=== PATIENT | male | born 1960 | race African-American/Black ===

== ENCOUNTER 2018-01-30 08:25 | Day surgery (SDC) | payer OTHER ==
[~2018-01-30] VITALS: Ht 195.6 cm; Wt 101.8 kg
--- NOTE | ~2018-01-30 | OP ---
PATIENT NAME: MARCOS BARRERA MEDICAL RECORD: [id number] :62 LOCATION:D.OPS ADMISSION DATE: SURGEON: NEIL PAUL MD DATE OF OPERATION: 01/30/2018 PREOPERATIVE DIAGNOSES: 1. Fecal occult blood positivity. 2. Anemia. POSTOPERATIVE DIAGNOSES: 1. Fecal occult blood positivity. 2. Anemia with no source for fecal occult blood positivity and anemia identified. 3. THE PATIENT HAS A PROSTATE NODULE. PROCEDURE: Total colonoscopy to cecum. SURGEON: Neil Paul MD FUEL CONVERSION TECHNICIAN: None. BLOOD LOSS: Zero. COMPLICATIONS: None. ENDOSCOPIC COURSE: The patient was conveyed to the endoscopy suite electively on 01/30/2018. It was necessary to have the anesthesia staff present during the procedure as the patient had a seizure during a prior upper endoscopy. IV sedation was induced by the anesthesia staff. The patient was placed in the Capps position. A digital examination was performed. This revealed a prostate nodule at the mid portion of the prostate gland. The endoscope was advanced through the anus and advanced easily to the cecum. The prep was adequate. I slowly withdrew the endoscope. I irrigated and aspirated extensively. A combination of normal imaging as well as narrow band imaging were utilized. I dragged the folds. The pullback was greater than 18-minute pullback. No bleeding source was identified. A retroflexed view was obtained in the rectum. I then unretroflexed the scope and removed it under direct vision. I have recommended the patient have an upper endoscopy if this has not already been done to search for a source for fecal occult blood positivity and anemia. TRANSINT:[id number] Voice Confirmation ID: [id number] DOCUMENT ID: [id number] NEIL PAUL MD at 1240 CC: [id number] DICTATION DATE: 01/30/18 1105 CORPORATE JOB TITLES: 01/30/18 1151 [facility] 01/30/18 [place] [id number] [place] [id number]
--- NOTE | ~2018-01-30 | HP ---
PATIENT: MARCOS BARRERA MEDICAL RECORD: [id number] ACCOUNT: [id number] LOCATION:[place] : 62 ADMISSION DATE: 01/30/18 HISTORY AND PHYSICAL EXAMINATION CHIEF COMPLAINT: Here for colonoscopy. The patient has fecal occult blood positivity as well as decreased H&H. I saw him out at the [facility]. Due to the fact that he is ASA IV it was felt that he would be best taken care of in the hospital. He states that he has had a seizure during an upper endoscopy in the past. The risks, possible complications, and alternatives to the procedure were explained to the patient. He elects to proceed. HOME MEDICATIONS: Please see the nursing list. ALLERGIES: No known drug allergies. SOCIAL HISTORY: Ex-smoker. PAST MEDICAL AND SURGICAL HISTORY: Angina. 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 Hypertension, seizures, insulin-dependent diabetes mellitus, chronic renal insufficiency, history of hepatitis C but he took the Harvoni regimen and states that he now tests negative, and gastroesophageal reflux. PHYSICAL EXAMINATION: GENERAL: The patient does not appear acutely ill. He does not appear chronically ill. VITAL SIGNS: Reviewed. EARS: External ears appear normal. EYES: Extraocular movements are intact. NECK: Trachea is midline. CHEST: No intercostal retractions. PULMONARY: Nonlabored, no stridor. ABDOMEN: Nontender. IMPRESSION: 1. Fecal occult blood positivity. 2. Anemia. PLAN: Colonoscopy. TRANSINT:[id number] Voice Confirmation ID: [id number] DOCUMENT ID: [id number] TERA PAUL MD at 1241 CC: [id number] DICTATION DATE: 01/30/18 1022 MASONRY CONTRACTOR ADMINISTRATOR: 01/30/18 1045 [facility] 01/30/18 [place] [id number]
[2018-01-30] MEDS ORDERED: LASIX40 MG PO (09:38)
[2018-01-30] MEDS ORDERED: HUMULIN N100 U/ML SC (09:39)
[2018-01-30] MEDS ORDERED: BAYER CHEWABLE81 MG PO (09:40)
[2018-01-30] MEDS ORDERED: HUMULIN R100 U/ML SC (09:40)
[2018-01-30] MEDS ORDERED: HYDRALAZINE HCL25 MG PO (09:41)
[2018-01-30] MEDS ORDERED: ISOSORBIDE DINI20 MG PO (09:42)
[2018-01-30] MEDS ORDERED: TOPROL XL25 MG PO (09:42)
[2018-01-30 09:52] VITALS: BP 156/104; Ht 195.6 cm; Wt 101.8 kg
== END 2018-01-30 12:30 | disposition home or self-care (01) ==
LOC: D.OPS 08:25
DX: R19.5 Other fecal abnormalities (principal); D64.9 Anemia, unspecified; N40.2 Nodular prostate without lower urinary tract symptoms; I20.9 Angina pectoris, unspecified; E11.22 Type 2 diabetes mellitus with diabetic chronic kidney disease; I12.9 Hypertensive chronic kidney disease with stage 1 through stage 4 chronic kidney disease, or unspecified chronic kidney disease; N18.9 Chronic kidney disease, unspecified; Z79.4 Long term (current) use of insulin; R56.9 Unspecified convulsions; Z86.19 Personal history of other infectious and parasitic diseases; K21.9 Gastro-esophageal reflux disease without esophagitis; Z87.891 Personal history of nicotine dependence; Z79.899 Other long term (current) drug therapy

== ENCOUNTER 2018-03-13 08:49 | Inpatient (IN) | payer MEDICAID ==
[~2018-03-13] VITALS: Ht 175.3 cm; Wt 105.2 kg
[2018-03-13] VITALS (27 sets, daily range): BP systolic 82–175; BP diastolic 52–107; BMI 35.5; BMI 33.7
--- NOTE | ~2018-03-13 | EC ---
PATIENT:MARCOS BARRERA DATE OF SERVICE: 03/13/18 SEX: M MEDICAL RECORD: [id number] DATE OF : 62 LOCATION:[facility] AGE OF PATIENT: 57 ADMISSION DATE: 03/13/18 REFERRING PHYSICIAN: INTERPRETING PHYSICIAN: GÓMEZ JUSTIN MD ECHOCARDIOGRAM REPORT ECHO CHARGES 4 ECHO COMPLETE Date: 03/14/18 CLINICAL DIAGNOSIS: S/P CODE/CHF ECHOCARDIOGRAPHIC MEASUREMENTS (adult normal given) AC root (d.<3.7cm) 3.6 cm LV Septum d (<1.2 cm> 1.4 cm Valve Excursion 2.0 cm LV Septum (systole) 1.9 cm Left Atria (s.<4.0cm> 3.9 cm LVPW d(<1.2cm) 1.3 cm RV (d.<2.3cm) 2.2 cm LVPW (sytole) 1.8 cm LV diastole(<5.6CM) 5.6 cm MV E-F(>70mm/sec) cm LV systole 3.5 cm LVOT Diameter 1.8 cm MV exc.(>10mm) cm Est.ejection fraction (50-75%) % DOPPLER: LVIT cm/sec A 55.0 cm/sec E 72.0 cm/sec LA cm/sec RVSP 23.0 mmHg LVOT 123 cm/sec AOP1/2T m/s Asc. Ao 147 cm/sec RVOT 76.0 cm/sec RA cm/sec PA 104 cm/sec AV Gradient Peak 8.7 mmHg AV Mean 3.9 mmHg AV Area 2.8 cm MV Gradient Peak 3.9 mmHg MV Mean 1.8 mmHg MV Area cm COMMENTS: Pricing Actuary: Griselda ALTAMIRANOOE Soap Tender: 1 Dr. Justin TAPE# PACS Pericardial Effusion N DATE OF SERVICE: 03/14/2018 FINDINGS: 1. Left ventricular chamber size is upper limits of normal. Left ventricular systolic function is mildly depressed. Overall ejection fraction 40%. There is mild global hypokinesis throughout all segments, but no discrete wall motion abnormalities are present. 2. Left atrium, right atrium, and right ventricle chamber size is within normal limits. 3. Valvular structures have normal structure and motion. ECHOCARDIOGRAM REPORT [id number] MARCOS BARRERA 4. Doppler interrogation reveals [id number] mitral regurgitation and mild tricuspid regurgitation. No other valvular insufficiency or stenosis. Pulmonary systolic pressure is normal, estimated at 23 mmHg. 5. No evidence of pericardial effusion or left ventricular thrombus. TRANSINT:[id number] Voice Confirmation ID: [id number] DOCUMENT ID: [id number] GÓMEZ JUSTIN MD at 0924 CC: [id number] DICTATION DATE: 03/14/18 1641 EXERCISE EQUIPMENT REPAIR TECHNICIAN: 03/14/18 1818 [facility] 03/14/18 [place] [id number] [place] [address]
--- NOTE | ~2018-03-13 | HP ---
PATIENT: MARCOS BARRERA MEDICAL RECORD: [id number] ACCOUNT: [id number] LOCATION:[facility] : 62 ADMISSION DATE: 03/13/18 PCP: No PCP HISTORY AND PHYSICAL EXAMINATION CHIEF COMPLAINT: Anemia. HISTORY: The patient has anemia. He has had a negative colonoscopy. He has had fecal occult blood positivity. He is here for an EGD. This is being done in the hospital because he has congestive heart failure and recently had a bout of congestive heart failure. SOCIAL HISTORY: Nonsmoker. MEDICINES AT THE SENIOR CARE: Include aspirin and Lasix. ALLERGIES: No known drug allergies. PAST MEDICAL AND SURGICAL HISTORY: Hypertension, congestive heart failure, heart rhythm problems, gastroesophageal reflux, insulin-dependent diabetes mellitus, and also venous stasis insufficiency of the lower extremities. REVIEW OF SYSTEMS: Baseline dyspnea. PHYSICAL EXAMINATION: GENERAL: The patient does not appear acutely ill. He does not appear chronically ill. VITAL SIGNS: Reviewed. EARS: External ears appear normal. EYES: Extraocular movements are intact. NECK: Trachea is midline. CHEST: No intercostal retractions. PULMONARY: Nonlabored. EXTREMITIES: Brawny edema of both lower extremities. IMPRESSION: Anemia with fecal occult blood positivity and a negative colonoscopy for bleeding. PLAN: EGD. TRANSINT:[id number] Voice Confirmation ID: [id number] DOCUMENT ID: [id number] TERA PAUL MD at 1017 CC: DIDIER OROZCO MD, GÓMEZ CESPEDES MD and [place] [id number] DICTATION DATE: 03/13/18 1347 DISHWASHER BUSSER: 03/13/18 1446 [facility] 03/14/18 [place] [id number] [place] [id number]
--- NOTE | ~2018-03-13 | CN ---
PATIENT NAME:MARCOS ROTHMAN MEDICAL RECORD: [id number] : 62 LOCATION:[facility]10 ADMIT DATE: 03/13/18 ACCOUNT: [id number] CONSULTING PHYSICIAN: GRISELDA FUNEZ MD REFERRING PHYSICIAN: TERA PAUL MD DATE OF CONSULTATION: 03/13/2018 CONSULT REQUESTING PHYSICIAN: Tera Paul MD. REASON FOR CONSULTATION: Vent management, status post cardiopulmonary arrest. HISTORY OF PRESENT ILLNESS: Mr. Rothman is a 57-year-old [place] He underwent EGD for possible GI bleed and Hemoccult-positive stool. During the procedure, the patient became bradycardic, hypoxic and unresponsive. The patient was coded, intubated and transferred to the ICU. Now, the history is taken mainly by reviewing the patient's chart and talking to the nursing staff as well as talking to Dr. Paul. The patient is unresponsive. ALLERGIES: There are no known drug allergy. PAST MEDICAL HISTORY: 1. Hypertension. 2. Congestive heart failure. 3. History of cardiac arrhythmia. 4. Gastroesophageal reflux disease. 5. Insulin-dependent diabetes mellitus. 6. Venous stasis of the lower extremity. ALLERGIES: No known drug allergies. MEDICATIONS: Guang Lian Shi Dai is reviewed. PERSONAL AND SOCIAL HISTORY: The detail is not obtainable. FAMILY HISTORY: Not obtainable. PHYSICAL EXAMINATION: GENERAL: Now, the patient is orally intubated. The patient is unresponsive. VITAL SIGNS: The blood pressure is 155/103, respirations are 12 on assist control mechanical ventilation, heart rate is 80 to 128, temperature is 97.5. Mechanical ventilation setting assist control rate of 12, tidal volume of 550, PEEP of 5. HEENT: Conjunctiva is pale. The pupil are unequal on both sides. The left is 4 mm in size and nonreactive to light. NECK: Supple. No JVD. CHEST: There are bilateral crackles. No wheezing. HEART: Rate and rhythm is regular. There is 2+ pedal edema. ABDOMEN: Soft, bowel sounds are muffled. RECTAL: Deferred. EXTREMITIES: No cyanosis or clubbing. There are 2+ pedal edema. CENTRAL NERVOUS SYSTEM: The patient has unequal pupil and unresponsive. LABORATORY DATA: CBC: WBC is 9.5, hemoglobin is 11.3, hematocrit 35.1, the platelet count 150. Chemistry: Sodium 139, potassium 3.2, chloride 105, bicarbonate is 26, BUN is 20, creatinine is 1.8, glucose 190, calcium 8.3. The CONSULT REPORT [id number] MARCOS ROTHMAN CK-MB is 3.8. The troponin is 0.239. The proBNP is 10,367. Albumin is 1.7. ABG: The pH is 7.11, pCO2 is 68.6, the pO2 is 78, bicarbonate is 21.8. IMPRESSION: 1. Acute respiratory failure. 2. Cardiopulmonary arrest. 3. Pulmonary edema. 4. Elevated cardiac enzyme, most likely secondary to myocardial infarction, possible post-resuscitation. 5. Congestive heart failure with chronic systolic dysfunction. 6. Anemia. 7. Gastrointestinal bleed. 8. Hypokalemia. RECOMMENDATIONS: 1. We will continue the mechanical ventilation assist control, adjust the setting. 2. Albuterol ipratropium nebulizer. 3. Continue dobutamine. 4. Propofol for sedation. 5. Gastrointestinal bleed prevention on Protonix IV. 6. DVT prophylaxis. 7. Cardiology has been consulted. 8. Follow up labs and chest radiograph. Discussed in length with respiratory RN and respiratory therapist, as well as talk to Dr. Paul. CRITICAL CARE TIME: 60 minutes. TRANSINT:[id number] Voice Confirmation ID: [id number] DOCUMENT ID: [id number] GRISELDA FUNEZ MD at 1301 CC: [id number] DICTATION DATE: 03/13/181750 MIXING TUMBLER OPERATOR: 03/13/181923 [facility] [place] 03/14/18 [facility] [address] [place] [address]
--- NOTE | ~2018-03-13 | OP ---
PATIENT NAME: MARCOS BARRERA MEDICAL RECORD: [id number] :62 LOCATION:[facility]2310 ADMISSION DATE:03/13/18 SURGEON: TERA PAUL MD DATE OF OPERATION: 03/13/2018 PREOPERATIVE DIAGNOSES: 1. Heme positive stools. 2. History of a "negative" colonoscopy for a source of occult bleeding. 3. Anemia. 4. Congestive heart failure. POSTOPERATIVE DIAGNOSES: 1. Heme positive stools. 2. History of a "negative" colonoscopy for a source of occult bleeding. 3. Anemia. 4. Gastric polyp, which appear to be adenomatous and could certainly be the source of an occult bleeding. 5. 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 6. Cardiopulmonary arrest. 7. Pulseless electrical activity. 8. Congestive heart failure. 9. Punctate gastritis within the upper fundus of the stomach. 10. Normal duodenum and normal-appearing esophagus. 11. Post-cardiac a ventricular arrhythmias. 12. Post code hypertension. 13. Post-code hypotension. PROCEDURE: 1. Esophagogastroduodenoscopy with hot biopsy forceps, gastric polypectomy. 2. Cautery of arteriovenous malformation. 3. Cold antral biopsies to check for H. pylori. 4. Critical care time 95 minutes. 5. Insertion of right internal jugular triple lumen central venous catheter, 16 cm. 6. Placement of left radial arterial line for hemodynamic monitoring due to refractory hypotension. DESCRIPTION OF PROCEDURE: The patient had [facility] The patient at that time had recently been hospitalized due to congestive heart failure. The patient has brawny edema involving both lower extremities. The patient has baseline dyspnea. We felt that he was too high risk to undergo an endoscopic procedure at the [facility] endoscopy clinic. Therefore, we recommended that his procedure be performed at an outpatient surgery center, ambulatory surgery center or hospital. The patient presented to [facility]. The risks, possible complications, and alternatives to endoscopy were explained to the patient. He elected to proceed. The discussion specifically included, but was not limited to, bleeding requiring emergency reoperation, infection, intestinal injury, perforation and the possible need for additional procedures. ENDOSCOPIC COURSE: The patient was conveyed to endoscopy suite electively on 03/13/2018. IV sedation was induced by the anesthesia staff. Reason for the anesthesia staff being present during the procedure includes the patient's history of significant cardiac problems. A topical anesthetic was sprayed into OPERATIVE REPORT [id number] MARCOS BARRERA the ashish. A bite block was inserted. IV sedation was induced by the anesthesia staff. The only propofol was used and we really did not use that much propofol. I began the endoscopic procedure. A gastroscope was advanced into the mouth. It was advanced easily into the hypopharynx. The esophagus was easily intubated as were the stomach and duodenum. Upon withdrawal, retroflexed and angulus views were obtained. Antral biopsies were obtained. These were cold endoscopic biopsies that were obtained to check for H. pylori. I then identified an arteriovenous malformation. This was grasped with the hot biopsy forceps and was cauterized. I then noticed a polyp, which was a sessile polyp. It was a 1.2 cm in diameter by about 1.1 cm in diameter and was about 4 mm high. This was grasped with the hot biopsy forceps and multiple hot biopsy forceps were performed until the polyp was biopsied and completely ablated. There was no evidence of full thickness injury to the stomach. It was at this point in time where I had difficulty insufflating the stomach. The patient began belching. We also noticed that he developed a sinus bradycardia, but still had a pulse. His respirations had decreased. I terminated the endoscopic procedure by withdrawing the scope under direct vision immediately. We noticed that the patient had a very shallow respirations. We began to ventilate the patient with the Ambu-type bag. We were able to ventilate the patient. We called for additional anesthesia help to the operating room, which is adjacent to the endoscopy unit. The automotive drivability technician gave a dose of Robinul due to the bradycardia. Bradycardia persisted. The pulse became thready and then became nonexistent. A code blue was called. We had ample trained medical personnel who presented within seconds of the code blue being called. This included a 3 or 4 CRNAs to the anesthesiologist, several nurses, the floor technician as well as myself. A good quality CPR was undertaken. The patient was endotracheally intubated. Intravenous medications were given. The patient received about 10 minutes of chest compressions. It was at that time that we regained the pulse. Pulse was a bounding pulse. The patient was transported to the intensive care unit. The 95 minutes of critical care time is exclusive of any time spent performing any invasive procedures. Further details of the critical care time are listed below. In the intensive care unit, the patient was very hypertensive. An x-ray revealed a pneumopericardium likely either due to vigorous bagging with the bag of valve or mask, a vigorous ventilation with the endotracheal tube in place or due to the chest compressions, in my opinion. The patient's heart was quite irritable. He began having ectopic ventricular beats some of which were not perfusing beats. The patient was very hypertensive and I chose to treat both the irritable heart as well as the hypertension with a rapid infusion of magnesium sulfate. Indeed, the patient's blood pressure did come down in to a normal range and the ectopy almost went away completely. The patient was going to be on multiple drips. I was asked by the nursing staff to insert a central venous line. Due to the urgency of the procedure and the inability to obtain consent, I felt that it was in the patient's best interest to proceed with central venous line insertion. The right neck was sterilely prepped and draped. Local anesthetic was used to infiltrate the skin and subcutaneous tissues at the base of the right neck. The right internal jugular vein was percutaneously accessed in an antegrade fashion. A guidewire passed easily. A small skin lamin was accomplished. A vessel dilator was used to dilate a subcutaneous tract. A 16-cm triple lumen central venous catheter was inserted to the hub. It was sutured in place times 3. All lumens flushed easily and aspirated dark, nonpulsatile blood. I instructed the nursing staff to use the central venous line immediately. A OPERATIVE REPORT [id number] MARCOS BARRERA post-procedure chest x-ray revealed severe pulmonary edema that was perhaps worse than the chest x-ray that had been obtained after intubation. There was some pleural fluid as well likely a pleural effusion. There was a decrease in the appearance of the pneumopericardium. There was no evidence of free air. The patient then became hypotensive despite dobutamine. I was asked to place an arterial line for continuous hemodynamic monitoring by the nursing staff. The left wrist was supinated. An Johnny's test revealed adequate collateral flow via the ulnar artery. The volar surface of the left wrist was sterilely prepped and draped. A local anesthetic was used to infiltrate the skin and subcutaneous tissues overlying the radial artery. The radial artery was percutaneously accessed in a retrograde fashion. A guidewire passed easily. A small skin lamin was accomplished. Over the guidewire, I advanced a long Angiocath. The wire was removed. Pulsatile flow was obtained through the Angiocath. This was attached to a flushed transducer tubing. I then sutured the arterial line in place times 3. There was an excellent waveform on the monitor. Dressings were applied at the central venous line site as well as the arterial line site. The 95 minutes of critical care time was time spent with the patient at his side the entire time and was exclusive of the time spent performing procedures. It involved titrating medicines, giving orders to the nurses, evaluation of x-ray images, ordering intravenous medications, and performing chest compressions. More specifically, I ordered Diprivan for sedation, magnesium sulfate, dobutamine for inotropic support due to the patient's congestive heart failure. I gave orders to suction the patient's endotracheal tube due to frothy secretions from his congestive heart failure. This improved after we were able to lower his blood pressure and by doing this, we lowered the afterload. Also it included blood pressure evaluations. Discussions with Dr. Scherer, the patient's de alcoholizer. Also, a discussion with the [facility] nurse at the [facility] came from discussing his condition. Also, review of laboratory data and giving the pharmacy laboratory technician ventilator instructions. TRANSINT:[id number] Voice Confirmation ID: [id number] DOCUMENT ID: [id number] TERA PAUL MD at 1013 CC: TERA SAPP MD, GÓMEZ CESPEDES MD and [place] [id number] DICTATION DATE: 03/16/18 1631 PBX MECHANIC: 03/16/182103 DIS IN 03/14/18 [facility] [address] [facility] [place] [address]
[~2018-03-13 08:49] MED LIST: BAYER CHEWABLE81 MG PO; HUMULIN N100 U/ML SC; HUMULIN R100 U/ML SC; HYDRALAZINE HCL25 MG PO; ISOSORBIDE DINI20 MG PO; LASIX40 MG PO; TOPROL XL25 MG PO
[2018-03-13 10:28] LABS: BASOPHILS 0.3 % (0-2); HEMATOCRIT 31.8 % (42.0-54.0); HEMOGLOBIN 10.5 g/dL (13.5-17.5); IMMATURE GRANULOCYTES 0.2 % (0-5); LYMPHOCYTES 30.7 % (15-50); MCH 28.5 pg (26.0-34.0); MCV 86.2 fL (80.0-100.0); MONOCYTES 8.8 % (2-11); PLATELET COUNT 174 10x3/uL (130-400); RBC 3.69 10x6/uL (4.20-6.10); RDW 14.8 % (11.5-14.5); WBC 6.5 10x3/uL (4.8-10.8)
[2018-03-13 10:40] LABS: ANION GAP 8.5 mmol/L (8-16); CALCIUM 8.4 mg/dL (8.5-10.1); CARBON DIOXIDE 29.4 mmol/L (21.0-32.0); CREATININE - SERUM 1.7 mg/dL (0.6-1.3); POTASSIUM - SERUM 3.9 mmol/L (3.5-5.1)
[2018-03-13 14:44] LABS: HEMATOCRIT 35.1 % (42.0-54.0); HEMOGLOBIN 11.3 g/dL (13.5-17.5); MCH 28.3 pg (26.0-34.0); MCHC 32.2 g/dL (31.0-37.0); MCV 87.8 fL (80.0-100.0); MEAN PLATELET VOLUME 10.7 fL (7.4-10.4); RDW 14.8 % (11.5-14.5)
[2018-03-13 14:48] LABS: PLATELET COUNT 115 10x3/uL (130-400); WBC 9.5 10x3/uL (4.8-10.8)
[2018-03-13 15:00] LABS: ALBUMIN 1.7 g/dL (3.4-5.0); ALKALINE PHOSPHATASE 83 U/L (46-116); ALT (SGPT) 14 U/L (10-68); BILIRUBIN - TOTAL 0.21 mg/dL (0.2-1.3); CALCIUM 8.3 mg/dL (8.5-10.1); CHLORIDE - SERUM 105 mmol/L (98-107); CREATININE - SERUM 1.8 mg/dL (0.6-1.3); PROTEIN - SERUM 6.4 g/dL (6.4-8.2); SODIUM 139 mmol/L (136-145); UREA NITROGEN 20 mg/dL (7-18); eGFR NON AFRICAN AMERICAN 42 mL/min (90-120)
[2018-03-13 15:02] LABS: CALC OSMOLALITY 285 mosm/kg (275-300); GLUCOSE 190 mg/dL (74-106); POTASSIUM - SERUM 3.2 mmol/L (3.5-5.1)
[2018-03-13 15:15] LABS: EOSINOPHILS 2 % (0-7); LYMPHOCYTES 35 % (15-50); MONOCYTES 1 % (2-11); NEUTROPHILS 62 % (40-80); PLATELET ESTIMATE DECREASED
[2018-03-13 15:18] LABS: CKMB 3.8 U/L (0.0-3.6); CREATINE KINASE 172 UL (21-232); PHOSPHOROUS 4.1 mg/dL (2.5-4.9); PRO BNP 10367 pg/mL (0-125)
[2018-03-13 15:20] LABS: TROPONIN-I 0.239 ng/mL (0.000-0.060)
[2018-03-13] MEDS ORDERED: HUMULIN N100 U/ML (15:58)
[2018-03-13] MEDS ORDERED: HUMULIN R100 U/ML (15:59)
[2018-03-13] MEDS ORDERED: LIPITOR10 MG (16:00)
[2018-03-13] MEDS ORDERED: HYDRALAZINE HCL25 MG (16:02)
[2018-03-14] VITALS (20 sets, daily range): BP systolic 101–138; BP diastolic 56–90; Ht 175.3 cm; Wt 105.2 kg
[2018-03-14 05:08] LABS: BASOPHILS 0 % (0-2); EOSINOPHILS 0 % (0-7); HEMATOCRIT 29.9 % (42.0-54.0); HEMOGLOBIN 9.7 g/dL (13.5-17.5); IMMATURE GRANULOCYTES 0.3 % (0-5); LYMPHOCYTES 2.3 % (15-50); MCH 27.8 pg (26.0-34.0); MCHC 32.4 g/dL (31.0-37.0); MEAN PLATELET VOLUME 12.1 fL (7.4-10.4); MONOCYTES 5.5 % (2-11); NEUTROPHILS 91.9 % (40-80); PLATELET COUNT 133 10x3/uL (130-400); RBC 3.49 10x6/uL (4.20-6.10); WBC 11.4 10x3/uL (4.8-10.8)
[2018-03-14 05:10] LABS: MCV 85.7 fL (80.0-100.0)
[2018-03-14 05:31] LABS: ALBUMIN 1.6 g/dL (3.4-5.0); ANION GAP 15.8 mmol/L (8-16); BILIRUBIN - TOTAL 0.45 mg/dL (0.2-1.3); CALCIUM 8.2 mg/dL (8.5-10.1); CARBON DIOXIDE 23.4 mmol/L (21.0-32.0); PROTEIN - SERUM 5.8 g/dL (6.4-8.2)
[2018-03-14 05:33] LABS: CREATININE - SERUM 2.8 mg/dL (0.6-1.3); POTASSIUM - SERUM 4.2 mmol/L (3.5-5.1)
[2018-03-14 11:33] LABS: COMPLEMENT C4 21.3 mg/dL (17.4-52.2)
[2018-03-14 12:19] LABS: CKMB 9.3 U/L (0.0-3.6)
[2018-03-14 12:22] LABS: ERYTHROCYTE SEDIMENTATION RATE 78 mm/hr (0-20)
[2018-03-14] MEDS ORDERED: ZOSYN 2.25 GM2.25 G1 IV (17:19)
[2018-03-14] MEDS ORDERED: BUMINATE50 ML IV (17:19)
[2018-03-14] MEDS ORDERED: PROTONIX VL + NS SYR IV (17:20)
[2018-03-14] MEDS ORDERED: IPRAT-ALBUT 0.5-3 ML IH (17:20)
[2018-03-15 10:21] LABS: ANA REFLEX - DIRECT Negative (Negative)
[2018-03-16 10:19] LABS: ANTI-GLOMERULAR BASMENT MEMBRN 4 units (0-20)
[2018-03-16 15:23] LABS: SPE - A/G RATIO 0.6 (0.7-1.7); SPE - ALPHA-1 GLOBULIN 0.3 g/dL (0.0-0.4); SPE - ALPHA-2 GLOBULIN 0.8 g/dL (0.4-1.0); SPE - BETA GLOBULIN 0.9 g/dL (0.7-1.3); SPE - GAMMA GLOBULIN 1.2 g/dL (0.4-1.8); SPE - M-SPIKE Not Observed g/dL (Not Observed); SPE - TOTAL PROTEIN 5.2 g/dL (6.0-8.5)
[2018-03-16 17:13] LABS: ANCA - ANTIMYELOPEROXIDASE <9.0 U/mL (0.0-9.0); ANCA - ANTIPROTEINASE 3 <3.5 U/mL (0.0-3.5); ANCA - ATYPICAL <1:20 titer (Neg:<1:20); ANCA - CYTOPLASMIC <1:20 titer (Neg:<1:20); ANCA - PERINUCLEAR <1:20 titer (Neg:<1:20)
== END 2018-03-14 19:35 | disposition short-term general hospital (02) | DRG 208 ==
LOC: D.OPS 08:49 → D.ICU 08:49 → D.OPS 12:00 → D.ICU 14:06
PROVIDERS: Anesthesiology; Family Medicine; Internal Medicine Nephrology; Internal Medicine Pulmonary Disease; Surgery
PROC: 5A1935Z Respiratory Ventilation, Less than 24 Consecutive Hours (ICD-10-PCS; 2018-03-13)
PROC: 0W3P8ZZ Control Bleeding in Gastrointestinal Tract, Via Natural or Artificial Opening Endoscopic (ICD-10-PCS; 2018-03-13)
PROC: 0DB68ZZ Excision of Stomach, Via Natural or Artificial Opening Endoscopic (ICD-10-PCS; 2018-03-13)
PROC: 0BH17EZ Insertion of Endotracheal Airway into Trachea, Via Natural or Artificial Opening (ICD-10-PCS; 2018-03-13)
PROC: 05HY33Z Insertion of Infusion Device into Upper Vein, Percutaneous Approach (ICD-10-PCS; 2018-03-13)
PROC: 4A133B1 Monitoring of Arterial Pressure, Peripheral, Percutaneous Approach (ICD-10-PCS; 2018-03-13)
PROC: 4A133J1 Monitoring of Arterial Pulse, Peripheral, Percutaneous Approach (ICD-10-PCS; 2018-03-13)
PROC: 0DB78ZX Excision of Stomach, Pylorus, Via Natural or Artificial Opening Endoscopic, Diagnostic (ICD-10-PCS; principal; 2018-03-13 12:00)
DX: J96.00 Acute respiratory failure, unspecified whether with hypoxia or hypercapnia (principal); I46.9 Cardiac arrest, cause unspecified; N17.0 Acute kidney failure with tubular necrosis; J81.1 Chronic pulmonary edema; E46 Unspecified protein-calorie malnutrition; I50.22 Chronic systolic (congestive) heart failure; G93.1 Anoxic brain damage, not elsewhere classified; K92.2 Gastrointestinal hemorrhage, unspecified; E66.9 Obesity, unspecified; I11.0 Hypertensive heart disease with heart failure; E11.9 Type 2 diabetes mellitus without complications; K21.9 Gastro-esophageal reflux disease without esophagitis; E78.5 Hyperlipidemia, unspecified; I83.10 Varicose veins of unspecified lower extremity with inflammation; D64.9 Anemia, unspecified; E87.6 Hypokalemia

== ENCOUNTER 2020-10-15 12:54 | Inpatient (IN) | payer MEDICAID ==
[~2020-10-15] VITALS: Ht 175.3 cm; Wt 91.2 kg
--- NOTE | ~2020-10-15 | HEMODYNAMI ---
PATIENT:MARCOS BARRERA MEDICAL RECORD: [id number] : 62 LOCATION:[address] ADMISSION DATE: 10/15/20 Generatedon:112:51 Patient name: MARCOS BARRERA Patient #: [id number] SSN: : 1960 Date of study: 10/26/2020 Page: Of Hemodynamic Procedure Report Patient Data Patient Demographics Procedure consent was obtained First Name: MARCOS Gender: Male Last Name: BRUCE : 1960 Patient #: [id number] Age: 60 year(s) Race: Black Additional ID: [id number] Contact details [address]: [address] [place] [address] State: [place] City: [place] Zip code: [address] Past Medical History Allergies: No known allergies Admission Admission Data Admission Date: 10/15/2020 Admission Time: 14:55 Room #: 2140 Height (in.): 68.9 BSA: 2.07 (m2) Height (cm.): 175 BMI: 29.71 (kg/m2) Weight (lbs.): 200.62 Weight (kg.): 91 Procedure Procedure Types Cath Procedure Diagnostic Procedure DARBY Procedure Description Procedure Date Procedure Date: 10/26/2020 Procedure Start Time: 12:39 Procedure End Time: 12:49 Procedure Staff Name Function Dony Bean MD Performing Physician Beti Beckman RT Monitor Yun Escalona RT Monitor Jose Cooper RN Nurse Xavier Alvarado RN Nurse Jacqueline Miles Agriscience Technology Instructor Procedure Data Cath Procedure Estimated blood loss: 0 ml Procedure Complications No complications Procedure Medications Medication Administration Route Dosage 0.9% NaCl I.V. 25 ml/hr Hurricaine [place] P.O. 1 Sprays Fentanyl I.V. 100 mcg Versed I.V. 2 mg Oxygen etCO2 Nasal cannula 2 l/min Hemodynamics Rest BSA: 2.07 (m2) O2 Consumption: Estimated: 246.7 (ml/min) O2 Consumption indexed: Estimated:119.18 (ml/min/m) Heart Rate: 74 (bpm) Snapshots Pre Cath Intra NCS Post Cath Vital Signs Time Heart Resp SPO2 etCO2 NIBP (mmHg) Rhythm Pain Sedation Rate (ipm) (%) (mmHg) Status Level (bpm) 12:31:14 73 14 99 19.4 161/95(133) NSR 0 (11) 10(A) , No pain 12:35:43 73 21 99 22.4 165/96(135) NSR 0 (11) 10(A) , No pain 12:40:15 73 25 98 23.1 165/75(138) NSR 0 (11) 10(A) , No pain 12:44:35 65 10 99 17.2 141/87(116) NSR 0 (11) 10(A) , No pain 12:48:53 66 11 99 14.9 138/84(116) NSR 0 (11) 10(A) , No pain Medications Time Medication Route Dose Verified Delivered Reason Notes Effecti veness by by 12:25:15 Oxygen etCO2 2 Dony Garcia used for Nasal l/min [facility] Elton Cooper RN procedure cannula 12:25:59 0.9% NaCl I.V. 25 Dony Garcia used for ml/hr [facility] Elton Cooper RN procedure 12:26:20 Hurricaine P.O. 1 Dony Fontenoty for local [place] Sprays [facility] El[facility] Cooper RN anesthetic 12:41:37 Fentanyl I.V. 100 Dony Fonten[address] for m[address] Elton Cooper RN sedation 12:41:45 Versed I.V. 2 [address] [facility] El[facility] Cooper RN sedation Procedure Log Time Note 12:00:56 Informed consent obtained and on chart 12:01:31 Procedure Status DARBY. 12:01:34 Xaiver Alvarado RN sent for patient. Start room use. 12:01:35 Time tracking: Regular hours (M-F 7:00 - 5:00) 12:01:38 Plan of Care:Hemodynamics will remain stable., Cardiac rhythm will remain stable., Comfort level will be maintained., Respiratory function will remain adequate., Patient/ family verbilizes understanding of procedure., Procedure tolerated without complication., Recovers from procedure without complications.. 12:02:33 H&P Date Dictated: 10/15/2020 Within 30 days and on chart., H&P Addendum completed by physician on day of procedure. (MUST COMPLETE FOR ALL OUTPATIENTS). 12:02:39 Patient allergic to No known allergies 12:18:57 Patient Weight : 200.62 lbs 12:19:03 Patient Height : 68.9 inches 12:19:29 Patient arrived from Pre/Post Procedure Room to CCL 1. Patient remains on bed/stretcher for procedure. 12:19:30 Correct patient and procedure confirmed by team. 12:19:30 ECG and BP/O2 sat monitors applied to patient. 12:19:32 Warm blankets applied, and micaela hugger turned on for patient comfort. 12:19:32 Full Disclosure recording started 12:19:33 Pre-procedure instructions explained to patient. 12:19:34 Pre-op teaching completed and patient verbalized understanding. 12:19:40 Patient NPO since Midnight. 12:19:42 Is the patient allergic to Iodine/contrast media? No. 12:19:43 Is patient on blood thinner?Yes 12:19:46 ACC The patient was administered the following blood thiners within the last 24 hours: ACCLovenox 12:20:10 Patient diabetic? Yes. 12:20:13 Previous problem with sedation/anesthesia? No ? 12:20:14 Snore? Yes 12:21:09 Sleep apnea? No 12:21:11 Deviated septum? No 12:21:11 Opens mouth fully? Yes 12:21:12 Sticks out tongue? Yes 12:21:48 Dentures? No ? 12:22:53 IV patent on arrival in left forearm with 0.9% NaCl at [facility]. 12:22:58 Lab results completed and on chart. 12:25:15 Oxygen 2 l/min etCO2 Nasal cannula was administered by Jose Cooper RN; used for procedure; Verbal order read back and verified. 12:25:59 0.9% NaCl 25 ml/hr I.V. was administered by Jose Cooper RN; used for procedure; Verbal order read back and verified. 12:26:00 IV Extension Set opened to sterile field. 12:26:20 Hurricaine [place] 1 Sprays P.O. was administered by Jose Cooper RN; for local anesthetic; Verbal order read back and verified. 12:26:28 Vital chart was started 12:26:38 Alarms reviewed by R. N. 12:30:20 Baseline sample Acquired. 12:30:24 Rhythm: sinus rhythm 12:30:31 Baseline sample Acquired. 12:38:00 --------ALL STOP TIME OUT------ 12:38:00 Final Timeout: patient, procedure, and site verified with staff and physician. All members of the team are in agreement. 12:38:04 Fire Safety Assessment: C--Open oxygen or nitrous oxide is being used. 12:38:07 Physical assessment completed. ASA score P 3 - A patient with severe systemic disease as per Dony Bean MD. 12:38:11 Sedation plan: IV Moderate Sedation Medication:Versed, Fentanyl 12:39:51 Procedure started. 12:40:07 DARBY 12:40:16 Jacqueline Miles Principal Investigator present for DARBY. 12:41:20 DARBY started. 12:41:37 Fentanyl 100 mcg I.V. was administered by Jose Cooper RN; for sedation; Verbal order read back and verified. 12:41:45 Versed 2 mg I.V. was administered by Jose Cooper RN; for sedation; Verbal order read back and verified. 12:47:55 DARBY completed. 12:48:04 Procedure ended.(Physican Out) 12:48:38 Post-procedure physical assessment completed. ASA score P 3 - A patient with severe systemic disease as per Dony Bean MD. 12:48:40 Post procedure rhythm: sinus rhythm 12:48:42 Estimated blood loss: 0 ml 12:48:44 Post procedure instruction explained to patient.Patient verbalizes understanding. 12:48:44 Patient needs reinforcement of post procedure teaching. 12:49:06 Procedure and supply charges have been captured, reviewed, submitted and are correct. 12:49:08 Procedure Complication : No complications 12:49:19 DARBY Findings: no vegetation noted 12:49:21 Operative report dictated upon procedure completion. 12:49:21 See physician's report for complete and final results. 12:49:24 Report given to [facility]. 12:49:27 Patient transfered to [facility] with Bed. 12:49:34 Vital chart was stopped 12:49:36 Procedure ended. 12:49:36 Full Disclosure recording stopped 12:49:40 End room use (Document Last) 12:51:01 Procedure ended.(Physican Out) Device Usage Item Name Manufacture Quantity Catalog Hospital Part Current Minimal Lot# / Number Charge Number Stock Stock Serial# Code IV [facility] 1 [id number] Extension Set Signature Audit [place] Stage Time Signature Unsigned Intra-Procedure 10/26/2020 Beti Beckman 12:50:37 PM RT(R) Intra-Procedure 10/26/2020 Xavier Alvarado RN 12:51:01 PM Intra-Procedure 10/26/2020 Dony Kline 12:51:35 PM Elton [facility] [address] [place] [address]
[~2020-10-15 12:54] MED LIST changes: +ALDACTONE100 MG PO; +ARANESP SQ; +BUMINATE50 ML IV; +COREG12.5 MG PO; +FERROUS SULFAT325 MG PO; +FUROSEMIDE20 MG PO; +HUMULIN N100 U/ML; +HUMULIN R100 U/ML; +HYDRALAZINE HCL25 MG; +IPRAT-ALBUT 0.5-3 ML IH; +LIPITOR10 MG; +NEURONTIN 300300 MG PO; +NITROSTAT0.4 MG SL; +NORVASC10 MG PO; +NOVOLIN 70/30 110 ML SC; +PROTONIX VL + NS SYR IV; +ZOSYN 2.25 GM2.25 G1 IV; +ZYLOPRIM100 MG PO
[2020-10-15 13:25] LABS: BASOPHILS 0 % (0-2); EOSINOPHILS 0.2 % (0-7); HEMATOCRIT 41.8 % (42.0-54.0); IMMATURE GRANULOCYTES 0.2 % (0-5); LYMPHOCYTE ABS# 0.62 10x3/uL (1.32-3.57); LYMPHOCYTES 10.7 % (15-50); MCH 30.4 pg (26.0-34.0); MCHC 33.5 g/dL (31.0-37.0); MCV 90.7 fL (80.0-100.0); MONOCYTES 9.3 % (2-11); NEUTROPHILS 79.6 % (40-80); PLATELET COUNT 82 10x3/uL (130-400); RBC 4.61 10x6/uL (4.20-6.10); RDW 15.2 % (11.5-14.5); WBC 5.8 10x3/uL (4.8-10.8)
[2020-10-15 13:29] LABS: PLATELET ESTIMATE DECREASED
[2020-10-15 13:33] LABS: ANION GAP 15.3 mmol/L (8-16); CALCIUM 8.9 mg/dL (8.5-10.1); CREATININE - SERUM 4.7 mg/dL (0.6-1.3); POTASSIUM - SERUM 4.3 mmol/L (3.5-5.1)
[2020-10-15] MEDS ORDERED: VITAMIN D325 MC1 PO (13:35)
[2020-10-15 13:39] LABS: ALBUMIN 3.1 g/dL (3.4-5.0); BILIRUBIN - TOTAL 0.53 mg/dL (0.2-1.3); PROTEIN - SERUM 7.7 g/dL (6.4-8.2)
--- NOTE | 2020-10-15 13:48 | NUR ---
DR JOSEPH CANCELLED CODE SEPSIS AT THIS TIME. LACTIC 1.0
[2020-10-15 14:53] LABS: BACTERIA MODERATE HPF (NONE SEEN); BILIRUBIN NEGATIVE (NEGATIVE); KETONE NEGATIVE (NEGATIVE); NITRITE NEGATIVE (NEGATIVE); SQUAMOUS EPITHELIAL 0-5 HPF (0-4); UROBILINOGEN NORMAL mg/dL (< 2)
[2020-10-15 15:44] LABS: SARS-CoV-2 ANTIGEN NEGATIVE- SARS-COV-2 (NEGATIVE)
--- NOTE | 2020-10-15 17:37 | NUR ---
PATIENT ARRIVED TO ROOM 2126 WITH GUARD AT SIDE. NO COMPUTER IN ROOM. WILL MOVE TO ROOM 2122.
[2020-10-15 17:51] VITALS: BP 139/87
[2020-10-15 20:20] VITALS: BP 159/78
[2020-10-15 22:34] VITALS: BP 159/78; BMI 29.7
[2020-10-16 01:22] LABS: INFLUENZA TYPE A NEGATIVE (NEGATIVE)
[2020-10-16 01:23] LABS: INFLUENZA TYPE B POSITIVE (NEGATIVE)
--- NOTE | 2020-10-16 01:38 | NUR ---
LAB CALLED BACK WITH POSITIVE FLU TYPE B RESULTS. EBONIE VILLA INFORMED. NEW ORDER FOR [facility] ESTABLISHED.
--- NOTE | 2020-10-16 02:47 | NUR ---
LAB CALLED WITH POSITIVE GRAM NEGATIVE RODS. ALLEN LOOMIS NOTIFIED. NEW ORDERS FOR MEDICATION ESTABLISHED. SEE MAR. WILL CONTINUE TO MONITOR. TEMP-99.8 AT THIS TIME
[2020-10-16 04:59] VITALS: BP 138/74
[2020-10-16 05:56] LABS: BASOPHILS 0.1 % (0-2); EOSINOPHILS 0.1 % (0-7); HEMATOCRIT 38.3 % (42.0-54.0); HEMOGLOBIN 12.6 g/dL (13.5-17.5); IMMATURE GRANULOCYTES 0.3 % (0-5); LYMPHOCYTE ABS# 0.95 10x3/uL (1.32-3.57); LYMPHOCYTES 14.2 % (15-50); MCH 30.1 pg (26.0-34.0); MCHC 32.9 g/dL (31.0-37.0); MCV 91.4 fL (80.0-100.0); MEAN PLATELET VOLUME 11.7 fL (7.4-10.4); MONOCYTES 13.5 % (2-11); NEUTROPHIL ABS# 4.78 10x3/uL (1.78-5.38); NEUTROPHILS 71.8 % (40-80); PLATELET COUNT 89 10x3/uL (130-400); RBC 4.19 10x6/uL (4.20-6.10); RDW 15.5 % (11.5-14.5); WBC 6.7 10x3/uL (4.8-10.8)
[2020-10-16 06:18] LABS: ALBUMIN 2.4 g/dL (3.4-5.0); ANION GAP 15.3 mmol/L (8-16); BILIRUBIN - TOTAL 0.39 mg/dL (0.2-1.3); CALCIUM 8.3 mg/dL (8.5-10.1); CARBON DIOXIDE 20.9 mmol/L (21.0-32.0); CREATININE - SERUM 5.1 mg/dL (0.6-1.3); POTASSIUM - SERUM 4.2 mmol/L (3.5-5.1); PROTEIN - SERUM 6.6 g/dL (6.4-8.2); VANCOMYCIN - RANDOM 12.8 ug/mL (10.0-20.0)
[2020-10-16 13:50] VITALS: BMI 29.7
--- NOTE | 2020-10-16 14:29 | NUR ---
I spoke with [facility] in [place]. Notified Physician of patient testing for flu B.
--- NOTE | 2020-10-16 16:13 | NUR ---
DIALYSIS TREATMENT TODAY, TOLERATED WELL. AFEBRILE, REMOVED 1 LITER TOTAL. B/P TRENDING DOWN TOWARDS END OF TREATMENT, ENDING BLOOD PRESSURE 90/60. DRESSING TO HEMASPLIT CHANGED THE TEGADERM HAD TO BE REMOVED TO ACCESS CATHETER CLAMPS. INSERTION SITE CLEANED USING STERILE TECHNIQUE, NEW DRESSING APPLIED.
[2020-10-16 20:38] VITALS: BP 147/85
[2020-10-17 06:08] LABS: BASOPHILS 0.2 % (0-2); EOSINOPHILS 2.6 % (0-7); HEMATOCRIT 36.2 % (42.0-54.0); IMMATURE GRANULOCYTES 0.3 % (0-5); LYMPHOCYTE ABS# 1.41 10x3/uL (1.32-3.57); MCHC 33.1 g/dL (31.0-37.0); MCV 90.5 fL (80.0-100.0); MEAN PLATELET VOLUME 11.4 fL (7.4-10.4); MONOCYTES 16.5 % (2-11); NEUTROPHIL ABS# 3.31 10x3/uL (1.78-5.38); NEUTROPHILS 56.4 % (40-80); PLATELET COUNT 90 10x3/uL (130-400); RDW 15.5 % (11.5-14.5); WBC 5.9 10x3/uL (4.8-10.8)
[2020-10-17 06:17] LABS: ALBUMIN 2.4 g/dL (3.4-5.0); ANION GAP 14.4 mmol/L (8-16); BILIRUBIN - TOTAL 0.32 mg/dL (0.2-1.3); CALCIUM 8.2 mg/dL (8.5-10.1); CARBON DIOXIDE 23.5 mmol/L (21.0-32.0); CREATININE - SERUM 4.4 mg/dL (0.6-1.3); POTASSIUM - SERUM 3.9 mmol/L (3.5-5.1); PROTEIN - SERUM 6.6 g/dL (6.4-8.2); VANCOMYCIN - RANDOM 8.7 ug/mL (10.0-20.0)
--- NOTE | 2020-10-17 07:00 | NUR ---
REPORT RECEIVED. PATIENT IS AAOX4, SITTING UP IN BED. NO S/S OF DISTRESS OBSERVED, RR EVEN AND UNLABORED ON ROOM AIR. PIV TO LT FA PATENT, INFUSING NS @50, DRSG C/D/I. RT CHEST HEMOSPLIT, DRSG C/D/I. PATIENT DENIES NEEDS AT THIS TIME. CL IN REACH, BED LOCKED AND LOWERED. DROPLET PRECAUTIONS MAINTAINED. SENIOR DESIGNER/ART DIRECTOR SITTING AT DOOR. WILL CPOC.
[2020-10-17 08:00] VITALS: BP 144/84
[2020-10-17 09:12] LABS: HEPATITIS C ANTIBODY >11.0 (0.0-0.9)
--- NOTE | 2020-10-17 10:41 | NUR ---
I have reviewed this patient and I concur with the Shift Assessment completed by the Licensed Practical Nurse today this shift.
[2020-10-17 11:00] VITALS: BP 136/69
[2020-10-17 15:24] VITALS: BP 114/64
--- NOTE | 2020-10-17 19:28 | NUR ---
PATIENT RESTING IN BED WITH NO S/S OF DISTRESS AND DENIES NEEDS AT THIS TIME. BED IN LOWEST POSITION AND CALL LIGHT IN REACH. ENCOURAGED PATIENT TO CALL WITH NEEDS.
[2020-10-17 21:04] VITALS: BP 140/76
--- NOTE | 2020-10-17 21:17 | NUR ---
ADMINISTERED MEDS PER ORDERS. PATIENT GWENDOLYN WELL. ENCOURAGED PATIENT TO CALL WITH NEEDS.
[2020-10-18] VITALS (7 sets, daily range): BP systolic 133–149; BP diastolic 76–82
[2020-10-18 06:02] LABS: BASOPHILS 0.2 % (0-2); EOSINOPHILS 4.2 % (0-7); HEMOGLOBIN 11.9 g/dL (13.5-17.5); IMMATURE GRANULOCYTES 0.4 % (0-5); LYMPHOCYTES 27.7 % (15-50); MCH 29.6 pg (26.0-34.0); MCHC 33.1 g/dL (31.0-37.0); MCV 89.6 fL (80.0-100.0); MEAN PLATELET VOLUME 11.9 fL (7.4-10.4); MONOCYTES 14.1 % (2-11); NEUTROPHILS 53.4 % (40-80); RBC 4.02 10x6/uL (4.20-6.10); RDW 15.1 % (11.5-14.5); WBC 5.1 10x3/uL (4.8-10.8)
[2020-10-18 06:13] LABS: PLATELET COUNT 110 10x3/uL (130-400)
[2020-10-18 06:26] LABS: ALBUMIN 2.3 g/dL (3.4-5.0); ANION GAP 14.2 mmol/L (8-16); BILIRUBIN - TOTAL 0.26 mg/dL (0.2-1.3); CALCIUM 8.1 mg/dL (8.5-10.1); CARBON DIOXIDE 23.8 mmol/L (21.0-32.0); CREATININE - SERUM 4.9 mg/dL (0.6-1.3); GENTAMICIN - RANDOM 0.8 ug/mL (0.5-2.0); MAGNESIUM - SERUM 2.2 mg/dL (1.8-2.4); PROTEIN - SERUM 6.7 g/dL (6.4-8.2)
--- NOTE | 2020-10-18 07:00 | NUR ---
REPORT RECEIVED. PATIENT IS AAOX4, LYING IN SEMI-FOWLERS POSITION. NO S/S OF DISTRESS OBSERVED. RR EVEN AND UNLABORED ON ROOM AIR. PIV TO LT FA PATENT, INFUSING NS @ 50ML/HR. PATIENT DENIES NEEDS AT THIS TIME. CL IN REACH, BED LOCKED AND LOWERED. DROPLET PRECAUTIONS MAINTAINED. WILL CPOC.
--- NOTE | 2020-10-18 09:30 | NUR ---
PATIENT IN SHOWER AT THIS TIME.
--- NOTE | 2020-10-18 11:22 | NUR ---
I have reviewed this patient and I concur with the Shift Assessment completed by the Licensed Practical Nurse today this shift.
--- NOTE | 2020-10-18 18:07 | NUR ---
LT FA PIV DC'D WITH CATH TIP INTACT, GAUZE AND TAP APPLIED. NEW 20G PIV SITED TO LT AC, GOOD BLOOD RETURN, FLUSHED WITH EASE. PATIENT TOLERATED WELL.
--- NOTE | 2020-10-18 20:20 | NUR ---
INITIAL ROUNDS AND ASSESSMENT COMPLETED. NO DISTRESS. RESTING IN BED. CALL LIGHT IN REACH.
--- NOTE | 2020-10-19 06:03 | NUR ---
PT SLEPT UNTIL 0300 THEN IT WAS NOTED THAT HE HAD BEEN INCONTINENT OF BOWEL. HE SHOWERED AND WAS GIVEN CLEAN PAPER SCRUBS, TELEMETRY WAS REAPPLIED AND HE IS ALSO WEARING A BRIEF. IVF NS @ 50ML/HR INFUSING TO NEW IV IN LFA. PT ALSO HAS SALINE LOCK IN LEFT A/C. HE HAS A RIGHT CHEST WALL HEMOSPLIT FOR DIALYSIS AND HIS RIGHT ARM IS BEING RESERVED FOR PLACEMENT OF AN AVF SOON. SR PER TELEMETRY AND HAS A PACEMAKER/DEFIBRILLATOR.PT IS ON DROPLET ISOLATION FOR FLU.
--- NOTE | 2020-10-19 07:00 | NUR ---
RECIEVED REPORT. ASSUMED CARE OF PATIENT. CALL LIGHT WITHIN REACH. PATIENT REMAINS IN DROPLET ISOLATION FOR FLU. EDWIGE REMAINS AT PATIENT DOOR. WHITE BOARD UPDATED, BEDSIDE SHIFT REPORT COMPLETE. LAB AT BEDSIDE TO DRAW AM LABS AT THIS TIME. NO DISTRESS.
[2020-10-19 07:25] LABS: BASOPHILS 0.2 % (0-2); EOSINOPHILS 3.2 % (0-7); HEMATOCRIT 36.5 % (42.0-54.0); HEMOGLOBIN 12.2 g/dL (13.5-17.5); IMMATURE GRANULOCYTES 0.9 % (0-5); LYMPHOCYTES 19.6 % (15-50); MCH 30.3 pg (26.0-34.0); MCHC 33.4 g/dL (31.0-37.0); MCV 90.6 fL (80.0-100.0); MEAN PLATELET VOLUME 11.1 fL (7.4-10.4); MONOCYTES 9.6 % (2-11); NEUTROPHIL ABS# 3.73 10x3/uL (1.78-5.38); NEUTROPHILS 66.5 % (40-80); PLATELET COUNT 118 10x3/uL (130-400); RBC 4.03 10x6/uL (4.20-6.10); RDW 15.2 % (11.5-14.5); WBC 5.6 10x3/uL (4.8-10.8)
[2020-10-19 07:41] LABS: ALBUMIN 2.5 g/dL (3.4-5.0); ANION GAP 14.8 mmol/L (8-16); BILIRUBIN - TOTAL 0.2 mg/dL (0.2-1.3); CALCIUM 8.6 mg/dL (8.5-10.1); CARBON DIOXIDE 23.2 mmol/L (21.0-32.0); MAGNESIUM - SERUM 2.2 mg/dL (1.8-2.4); PROTEIN - SERUM 6.8 g/dL (6.4-8.2)
[2020-10-19 08:25] VITALS: BP 153/83
--- NOTE | 2020-10-19 09:14 | NUR ---
DIALYSIS ON HOLD TODAY PER .
--- NOTE | 2020-10-19 10:33 | NUR ---
QUESTIONED ABOUT VENOUS BLOOD CULTURES OREDERED TODAY SINCE VENOUS BC WAS NEGATIVE YESTERDAY, ONLY POSITIVE IS COMING FROM HEMOSPLIT AND HEMOSPLIT IS GOING TO BE REPLACED IN OR BY TOMORROW. GAVE ORDERS TO ASK KAIN LOOMIS, HER REASONING BEHIND THE VENOUS CULTURES ORDERED TODAY. AWAITING CALL BACK/TEXT FROM EBONIE FINNEGAN TO VERIFY SHE CONTINUES TO WANT TO PROCEEDE WITH ORDER FOR VENOUS CULTURES. WILL NOTIFY LAB TO PROCEEDE WHEN ORDER IS VERIFIED.
--- NOTE | 2020-10-19 10:53 | NUR ---
CALL PLACED TO MARINE MCKEON , TO ADDRESS NURSING MESSAGE RECEIVED FROM . WILL RETURN CALL TO SOON THIS COMPUTER EQUIPMENT REPAIRER HAS SPOKEN WITH MARINE.
--- NOTE | 2020-10-19 11:35 | NUR ---
SPOKE WITH , WILL PROCEEDE WITH HEMOSPLIT CHANGE OUT TOMORROW AND HOLD OFF ON VEIN MAPPING UNTIL PATIENT IS OUT OF DROPLET ISOLATION.
--- NOTE | 2020-10-19 11:46 | NUR ---
SPOKE TO NORA IN RADIOLOGY AND INFORMED HER THAT PER , HOLD OFF ON VEIN MAPPING DUE TO PATIENT HAS INFLUENZA AND HE IS TRYING TO DECREASE EXPOSURE TO STAFF POSSIBLE. ONCE PATIENT IS OUT OF DROPLET ISOLATION, VEIN MAPPING CAN BE COMPLETED.
[2020-10-19 12:46] VITALS: BP 147/68
--- NOTE | 2020-10-19 12:54 | NUR ---
Nutrition Reassessment/Follow-up: Pt in droplet isolation; flu B (+). Eating well. No HD today. NPO p MN for hemosplit exchange tomorrow. Diet: Renal ADA PO intake: 83% avg x 3 meals yesterday No new wt; last wt: 201# (10/16) Labs noted: K+ 4.0, Glu 110, Alb 2.5 Meds noted: Novolin, Humalog, Florajen, Lasix, NS @ 60 Nutrition Goals: -PO intake >=75% avg meal intake. -Stable dry wt. -Glu at or near normal. Nutrition Intervention: -Nutrition needs unchanged since initial assessment; no new wt available. -Encourage PO intake and honor food preferences within diet restrictions. -Monitor wt. -RD will follow up within 7 days if pt still admitted.
--- NOTE | 2020-10-19 16:57 | NUR ---
FSBS 141. NO INSULIN PER SLIDING SCALE.
[2020-10-19 17:01] VITALS: BP 137/84
[2020-10-19 20:56] VITALS: BP 148/80
[2020-10-20 01:48] VITALS: BP 144/77
[2020-10-20 05:26] VITALS: BP 155/82
[2020-10-20 06:13] LABS: BASOPHILS 0.4 % (0-2); EOSINOPHILS 2.9 % (0-7); HEMATOCRIT 37.1 % (42.0-54.0); HEMOGLOBIN 12.4 g/dL (13.5-17.5); LYMPHOCYTE ABS# 1.03 10x3/uL (1.32-3.57); MCHC 33.4 g/dL (31.0-37.0); MCV 89.6 fL (80.0-100.0); MEAN PLATELET VOLUME 11.3 fL (7.4-10.4); MONOCYTES 10.7 % (2-11); NEUTROPHIL ABS# 3.35 10x3/uL (1.78-5.38); PLATELET COUNT 127 10x3/uL (130-400); RBC 4.14 10x6/uL (4.20-6.10); RDW 14.9 % (11.5-14.5); WBC 5.2 10x3/uL (4.8-10.8)
[2020-10-20 06:33] LABS: ALBUMIN 2.3 g/dL (3.4-5.0); ANION GAP 15.1 mmol/L (8-16); BILIRUBIN - TOTAL 0.16 mg/dL (0.2-1.3); CALCIUM 8.4 mg/dL (8.5-10.1); CARBON DIOXIDE 21.9 mmol/L (21.0-32.0); CREATININE - SERUM 4.8 mg/dL (0.6-1.3); MAGNESIUM - SERUM 2.3 mg/dL (1.8-2.4); PROTEIN - SERUM 6.7 g/dL (6.4-8.2); VANCOMYCIN - RANDOM 17.3 ug/mL (10.0-20.0)
[2020-10-20 08:35] VITALS: BP 171/89
--- NOTE | 2020-10-20 08:44 | NUR ---
AM MEDS GIVEN AT THIS TIME WITH SMALL SIP OF WATER, LOVENOX HELD D/T SURGERY TODAY. PT AWAKE AND ALERT, RR EVEN NON LABORED ON ROOM AIR. PT DENIES ANY PAIN OR NEEDS AT THIS TIME. CLWR.
--- NOTE | 2020-10-20 09:10 | NUR ---
PREOP MEDS GIVEN AT THIS TIME PER ORDER. PT COMPLETED HIBACLEANSE AND NASAL SWAB PRIOR TO SHIFT. PT AWAKE AND DENIES ANY QUESTIONS. CLWR.
--- NOTE | 2020-10-20 11:48 | NUR ---
PT TO GO TO DIALYSIS PRIOR TO SURGERY, NOTIFIED PT REGARDING PLAN OF CARE. PT STATES UNDERSTANDING. PT REQUESTED SHOWER, ITEMS FOR SHOWER GIVEN, EDWIGE NOTIFIED. GUARD ASSISTED WITH HANDCUFFS. NO FURTHER NEEDS VOICED. FALL PRECAUTIONS REVIEWED. CLWR.
[2020-10-20 13:19] VITALS: BP 156/83
--- NOTE | 2020-10-20 14:37 | NUR ---
SPOKE WITH DR. FAULKNER AT THIS TIME. PT WILL NOT BE TAKEN TO SURGERY TODAY PER DR RAMOS. PT CAN EAT AT THIS TIME. PER MD D/C FLUID ORDER FOR NS AT 50ML/HR. NO FURTHER ORDERS OR CHANGE TO PLAN OF CARE.
[2020-10-20 18:24] VITALS: BP 152/79
[2020-10-20 20:00] VITALS: BP 140/85
[2020-10-21] VITALS: BP 157/79
--- NOTE | 2020-10-21 05:03 | NUR ---
PT TELE DC'D PER RUBBER CUTTER MICHELLE.
[2020-10-21 05:29] LABS: BASOPHILS 0.1 % (0-2); EOSINOPHILS 2.5 % (0-7); HEMATOCRIT 37.2 % (42.0-54.0); HEMOGLOBIN 12.5 g/dL (13.5-17.5); IMMATURE GRANULOCYTES 0.7 % (0-5); LYMPHOCYTE ABS# 0.79 10x3/uL (1.32-3.57); LYMPHOCYTES 11.8 % (15-50); MCH 30.2 pg (26.0-34.0); MCHC 33.6 g/dL (31.0-37.0); MCV 89.9 fL (80.0-100.0); MEAN PLATELET VOLUME 11.1 fL (7.4-10.4); NEUTROPHIL ABS# 5.08 10x3/uL (1.78-5.38); NEUTROPHILS 75.9 % (40-80); PLATELET COUNT 143 10x3/uL (130-400); RBC 4.14 10x6/uL (4.20-6.10); RDW 14.7 % (11.5-14.5)
[2020-10-21 05:40] LABS: WBC 6.7 10x3/uL (4.8-10.8)
[2020-10-21 05:47] LABS: ALBUMIN 2.4 g/dL (3.4-5.0); ANION GAP 15.3 mmol/L (8-16); BILIRUBIN - TOTAL 0.2 mg/dL (0.2-1.3); CALCIUM 8.4 mg/dL (8.5-10.1); CARBON DIOXIDE 22.8 mmol/L (21.0-32.0); CREATININE - SERUM 4.5 mg/dL (0.6-1.3); POTASSIUM - SERUM 4.1 mmol/L (3.5-5.1); PROTEIN - SERUM 6.9 g/dL (6.4-8.2); VANCOMYCIN - RANDOM 13.3 ug/mL (10.0-20.0)
--- NOTE | 2020-10-21 08:29 | NUR ---
AM MEDS GIVEN AT THIS TIME. PT C/O NAUSEA AND VOMITING. PAGED KAIN FOR POTENTIAL ORDER. PT AWAKE AND ALERT SITTING ON SIDE OF BED, RR EVEN NON LABORED ON ROOM AIR. NO FURTHER NEEDS VOICED. CLWR.
--- NOTE | 2020-10-21 09:31 | NUR ---
TELEPHONE ORDER RECEIVED AND PLACED IN CHART FOR NAUSEA/VOMITING.
[2020-10-21 09:57] VITALS: BP 129/78
--- NOTE | 2020-10-21 11:04 | NUR ---
BLOOD SUGAR 157. PT DENIES WANTING HIS SCHEDULED 70/30 D/T BEING SICK AT THIS TIME STOMACH AND NOT HAVING MUCH APPETITE.
--- NOTE | 2020-10-21 12:15 | EC ---
PATIENT:MARCOS BARRERA DATE OF SERVICE: 10/15/20 SEX: M MEDICAL RECORD: [id number] DATE OF : 62 LOCATION:D.M2 D.214 AGE OF PATIENT: 60 ADMISSION DATE: 10/15/20 REFERRING PHYSICIAN: INTERPRETING PHYSICIAN: GILBERT BUTLER MD ECHOCARDIOGRAM REPORT ECHO CHARGES 4 ECHO COMPLETE Date: 10/19/20 CLINICAL DIAGNOSIS: R/O VEGITATION ECHOCARDIOGRAPHIC MEASUREMENTS (adult normal given) AC root (d.<3.7cm) 3.3 cm LV Septum d (<1.2 cm> 1.0 cm Valve Excursion 1.8 cm LV Septum (systole) 1.8 cm Left Atria (s.<4.0cm> 3.7 cm LVPW d(<1.2cm) 0.9 cm RV (d.<2.3cm) 3.0 cm LVPW (sytole) 1.1 cm LV diastole(<5.6CM) 5.9 cm MV E-F(>70mm/sec) cm LV systole 4.7 cm LVOT Diameter 1.5 cm MV exc.(>10mm) 1.4 cm Est.ejection fraction (50-75%) % DOPPLER: LVIT cm/sec A 96 cm/sec E 50 cm/sec LA cm/sec RVSP 20 mmHg LVOT 81 cm/sec AOP1/2T m/s Asc. Ao 115 cm/sec RVOT 69 cm/sec RA cm/sec PA 102 cm/sec AV Gradient Peak 5.3 mmHg AV Mean 2.9 mmHg AV Area 1.5 cm MV Gradient Peak 4.4 mmHg MV Mean 1.5 mmHg MV Area cm COMMENTS: Planning Rn: Deborah ROQUE Industrial Spray Painter: 3 Dr. Cabrera TAPE# Pericardial Effusion N DATE OF SERVICE: Adequate 2D, color-flow imaging, spectral Doppler, and M-Mode. FINDINGS: No LVH. LV internal dimension is normal. Wall motion is normal. EF is greater than or equal to 55%. Aortic valve is tricuspid. No evidence of stenosis by Doppler interrogation. Left atrium is normal. Mitral valve shows no prolapse. Trivial MR. Right side is grossly normal. Trivial TR. TRANSINT:[id number] Voice Confirmation ID: [id number] DOCUMENT ID: [id number] ECHOCARDIOGRAM REPORT [id number] MARCOS BARRERA GILBERT BUTLER MD at 1215 CC: [id number] DICTATION DATE: 10/20/20 1444 DIRECTOR ORACLE: 10/20/20 2147 ADM IN [place] [id number] [place] [address]
[2020-10-21 12:44] VITALS: BP 135/77
--- NOTE | 2020-10-21 16:01 | NUR ---
PT RECEIVING DIALYSIS IN ROOM AT THIS TIME.
[2020-10-21 20:10] VITALS: BP 170/98
--- NOTE | 2020-10-21 20:10 | NUR ---
pt with chills, shivers, N/V temp 99.6 REPORTS HE DOES NOT FEEL WELL. TYLENOL AND ZOFRAN GIVEN PER PRN ORDERS
--- NOTE | 2020-10-21 21:25 | NUR ---
TEMP 101.6 PAGED JOVAN LOOMIS, ADVISED TO NOTIFY RENAL. PAGED RENAL BLANKING PRESS OPERATOR WILL AWAIT CALL BACK
--- NOTE | 2020-10-21 21:27 | NUR ---
NMOTIFIED ANALY ETHYL BLENDER WITH RENAL OF TEMP 101.7 1 HR AFTER TYLENOL, NO NEW ORDERS AT THIS TIME, WILL CONTINUE TO MONITOR
--- NOTE | 2020-10-21 23:22 | MORECARE ---
CASE MANAGEMENT DISCHARGE SUMMARY PATIENT: MARCOS BARRERA UNIT: [id number] ADM DATE: 10/15/20 AGE: 60 : 62 SEX: M ROOM/BED: D.2140 AUTHOR: CHAU PAUL PHYSICIAN: REFERRING PHYSICIAN: MARY ALEJANDRE MD DATE OF SERVICE: 10/21/20 Case Management Discharge Planning Summary COMMENTS ENTERED DATE: 10/21/20 23:18 CT COMMENT TYPE: Discharge Planning REVIEWER: Anusha Salgado PATIENT IS AN INMATE AT [facility] DEPARTMENT OF CORRECTIONS AND WILL RETURN THERE UPON DISCHARGE. GUARD AT DOOR OF ROOM DCP REVIEW SUMMARY ANTICIPATED D/C DATE: EXPECTED LOS : CASE STATUS: DCP Initiated INITIAL REVIEW: 10/15/2020 INITIAL REVIEWER: Anusha Salgado FINAL DISCHARGE DISPOSITION: : FINAL REVIEWER: FINAL REVIEW DATE: DCP Focus Questions & Answers DCP Screen QUESTION: ANSWER High Risk Factors: : Hosp related to CHF, COPD, DM, End Stage Ds, CVA, CA DCP Evaluation QUESTION: ANSWER Patient gives permission to discuss discharge plans with: (name, relationship and number) : [facility] IN[facility] Patient's ability to cope with chronic illness : d. No chronic illness Physical Status: : Independent with ADL's Living Arrangements: : Other Living arrangements comments: : [facility] Baseline cognitive status: : *Oriented to person, place, situation, time and present Pharmacy name(s): : [facility] Does Patient have transportation to get home and to follow-up medical appointments when discharged from the hospital? : Yes Would patient like to participate in any Care Coordination programs (if applicable): : Not applicable Does the patient have electricity at home? : Yes Does the patient have running water in their house? : Yes Mental health screen: : No mental health history DCP Re-evaluation QUESTION: ANSWER Would patient like to participate in any Care Coordination programs (if applicable): : Not applicable PATIENT: MARCOS BARRERA ENCOUNTER: [id number] MEDICAL RECORD#: [id number] ADMISSION DATE: 10/15/2020 DISCHARGE DATE: ATTENDING MD: MARY ARDON : AGE: 60 MARITAL STATUS: M DC PLAN ID: [id number] FACILITY: [facility] PRINTED ON: 10/21/20 23:22 CT All edits/amendments must be made on the electronic document DICTATION DATE: 10/21/202321 BUSINESS EDUCATION INSTRUCTOR: YOSHI 10/21/202321 RPT#: [id number] DC DATE: STATUS: ADM IN [facility] [address] [place] [address] END OF REPORT
[2020-10-21 23:28] VITALS: BP 143/79
[2020-10-22] VITALS (11 sets, daily range): BP systolic 91–141; BP diastolic 56–78
[2020-10-22 04:44] LABS: BASOPHILS 0.1 % (0-2); EOSINOPHILS 0.5 % (0-7); HEMATOCRIT 36.5 % (42.0-54.0); HEMOGLOBIN 12.3 g/dL (13.5-17.5); IMMATURE GRANULOCYTES 0.5 % (0-5); LYMPHOCYTE ABS# 0.58 10x3/uL (1.32-3.57); LYMPHOCYTES 4.5 % (15-50); MCH 30.5 pg (26.0-34.0); MCHC 33.7 g/dL (31.0-37.0); MCV 90.6 fL (80.0-100.0); MEAN PLATELET VOLUME 10.8 fL (7.4-10.4); MONOCYTES 6.1 % (2-11); NEUTROPHIL ABS# 11.26 10x3/uL (1.78-5.38); NEUTROPHILS 88.3 % (40-80); PLATELET COUNT 131 10x3/uL (130-400); RBC 4.03 10x6/uL (4.20-6.10)
[2020-10-22 04:45] LABS: WBC 12.8 10x3/uL (4.8-10.8)
[2020-10-22 05:32] LABS: ALBUMIN 2.5 g/dL (3.4-5.0); ANION GAP 13.2 mmol/L (8-16); BILIRUBIN - TOTAL 0.24 mg/dL (0.2-1.3); CALCIUM 8.5 mg/dL (8.5-10.1); CARBON DIOXIDE 24.9 mmol/L (21.0-32.0); CREATININE - SERUM 4.1 mg/dL (0.6-1.3); POTASSIUM - SERUM 4.1 mmol/L (3.5-5.1); PROTEIN - SERUM 6.9 g/dL (6.4-8.2); VANCOMYCIN - RANDOM 18.2 ug/mL (10.0-20.0)
--- NOTE | 2020-10-22 08:16 | NUR ---
AM MEDS GIVEN AND PREOP COMPLETE AT THIS TIME. PT LYING IN BED WITH HOB RAISED, GAURD AT BEDSIDE. RR EVEN NON LABROED ON ROOM AIR. PT DENIES ANY FURTHER NEEDS. CLWR.
--- NOTE | 2020-10-22 08:25 | NUR ---
PT TAKEN TO SURGERY AT THIS TIME.
--- NOTE | 2020-10-22 11:35 | NUR ---
PT ARRIVED BACK FROM SURGERY AT THIS TIME, VS OBTAINED AND STABLE. PT AWAKE AND ALERT, RR EVEN NON LABORED ON ROOM AIR. CLWR.
--- NOTE | 2020-10-22 12:40 | NUR ---
PT TAKEN LUNCH TRAY, VITAL SIGNS REMAIN WNL, PT AWAKE AND ALERT, NO PAIN VOICED. GUARD AT BEDSIDE. CLWR.
--- NOTE | 2020-10-22 19:30 | NUR ---
PT IN BED, AAO X 4, RESP EVEN AND UNLABORED, NO DISTRESS NOTED, CL IN REACH, SR UP X 2.
[2020-10-23 06:04] VITALS: BP 144/78
[2020-10-23 07:18] LABS: ALBUMIN 2.6 g/dL (3.4-5.0); ANION GAP 15.1 mmol/L (8-16); BILIRUBIN - TOTAL 0.22 mg/dL (0.2-1.3); CALCIUM 8.7 mg/dL (8.5-10.1); CARBON DIOXIDE 23.5 mmol/L (21.0-32.0); CREATININE - SERUM 4.6 mg/dL (0.6-1.3); POTASSIUM - SERUM 4.6 mmol/L (3.5-5.1); PROTEIN - SERUM 6.8 g/dL (6.4-8.2); VANCOMYCIN - RANDOM 13.9 ug/mL (10.0-20.0)
[2020-10-23 07:44] LABS: BASOPHILS 0 % (0-2); EOSINOPHILS 0 % (0-7); HEMATOCRIT 35.8 % (42.0-54.0); HEMOGLOBIN 12.1 g/dL (13.5-17.5); IMMATURE GRANULOCYTES 0.4 % (0-5); LYMPHOCYTE ABS# 0.52 10x3/uL (1.32-3.57); LYMPHOCYTES 4.6 % (15-50); MCH 29.8 pg (26.0-34.0); MCHC 33.8 g/dL (31.0-37.0); MEAN PLATELET VOLUME 11.9 fL (7.4-10.4); MONOCYTES 2.7 % (2-11); NEUTROPHIL ABS# 10.43 10x3/uL (1.78-5.38); NEUTROPHILS 92.3 % (40-80); PLATELET COUNT 148 10x3/uL (130-400); RBC 4.06 10x6/uL (4.20-6.10); RDW 14.5 % (11.5-14.5); WBC 11.3 10x3/uL (4.8-10.8)
[2020-10-23 07:47] LABS: MCV 88.2 fL (80.0-100.0)
[2020-10-23 08:56] VITALS: BP 147/90
[2020-10-23 09:11] VITALS: Ht 175.3 cm; Wt 91.2 kg
--- NOTE | 2020-10-23 15:05 | NUR ---
Nutrition Re-Assessment Plans for hemosplit replacement on Monday. Diet: NPO (for hemosplit removal this AM)- previously Renal ADA PO intake: Ate 75-100% of lunch and dinner yesterday. Eating fine per RN. Last BM: 10/18/20 last recorded Wt: 201# (10/16/20), no new weight Meds noted: novolin 70/30, abx, probiotics, SSI, lasix Labs noted: BUN 58(H), Cr 4.6(H), GFR 17(L), Glu 319(H), POC Glu 291(H) Estimated nutrition needs: [id number] florence (30-35 Adj), 95-100gms protein (1.2-1.3), 1000mL +UOP (or per MD) Nutrition diagnosis: -Altered nutrition related lab values r/t ESRD AEB BUN 58, Cr 4.6, GFR 17. -Inadequate energy intake r/t recent/planned surgery AEB NPO at this time. Nutrition goals: -PO diet will resume within 24-48hrs -Dry weight stable Recommendations/Interventions: -Resume Renal ADA diet as soon as medically feasible. Once PO diet resumed, will continue to honor food preferences within diet restrictions. -RD will follow-up 10/27/20.
--- NOTE | 2020-10-23 16:34 | NUR ---
I have reviewed this patient and I concur with the Shift Assessment completed by the Licensed Practical Nurse today this shift.
--- NOTE | 2020-10-23 20:12 | NUR ---
PT IN BED WITH SHACKLES ON. GUARD AT BEDSIDE. PT PLEASANT & CONVERSANT. DENIES ANY PAIN BRIGHT SPIRITS IV TO LEFT WRIST NO NEEDS VOICED
[2020-10-23 22:32] VITALS: BP 169/82
[2020-10-24 03:35] VITALS: BP 135/72
--- NOTE | 2020-10-24 07:00 | NUR ---
RECEIVED REPORT. ASSUMED CARE OF PATIENT. PATIENT LYING IN BED WITH EYES OPEN, GAURD AT BEDSIDE. PATIENT REMAINS ON CONTACT ISOLATION. WHITE BOARD UPDATED, BEDSIDE SHIFT REPORT COMPLETE. DENIES NEEDS AT THIS TIME. NO DISTRESS.
[2020-10-24 07:15] LABS: BASOPHILS 0 % (0-2); EOSINOPHILS 0.4 % (0-7); HEMOGLOBIN 11.7 g/dL (13.5-17.5); LYMPHOCYTE ABS# 1.25 10x3/uL (1.32-3.57); LYMPHOCYTES 11.2 % (15-50); MCH 29.8 pg (26.0-34.0); MCHC 33.4 g/dL (31.0-37.0); MCV 89.1 fL (80.0-100.0); MEAN PLATELET VOLUME 11.4 fL (7.4-10.4); MONOCYTES 5.4 % (2-11); PLATELET COUNT 154 10x3/uL (130-400); RBC 3.93 10x6/uL (4.20-6.10); RDW 14.6 % (11.5-14.5); WBC 11.2 10x3/uL (4.8-10.8)
[2020-10-24 07:53] LABS: ALBUMIN 2.4 g/dL (3.4-5.0); BILIRUBIN - TOTAL 0.13 mg/dL (0.2-1.3); CALCIUM 8.5 mg/dL (8.5-10.1); CARBON DIOXIDE 21.3 mmol/L (21.0-32.0); CREATININE - SERUM 4.4 mg/dL (0.6-1.3); POTASSIUM - SERUM 4.3 mmol/L (3.5-5.1); PROTEIN - SERUM 6.8 g/dL (6.4-8.2); VANCOMYCIN - RANDOM 20.4 ug/mL (10.0-20.0)
[2020-10-24 08:01] VITALS: BP 128/74
--- NOTE | 2020-10-24 11:33 | NUR ---
FSBS 314, 8 UNITS HUMALOG AND 15 UNITS 70/30 ADMINISTERED ORERED. NO DISTRESS. CALL LIGHT WITHIN REACH.
[2020-10-24 16:00] VITALS: BP 132/66
--- NOTE | 2020-10-24 16:46 | NUR ---
FSBS 216. 4 UNITS HUMALOG ADMINISTERED PER SLIDING SCALE.
--- NOTE | 2020-10-24 19:30 | NUR ---
PT IN BED, AAO X 4, RESP EVEN AND UNLABORED, NO DISTRESS NOTED,CL IN REACH, SR UP X 2.
[2020-10-24 21:46] VITALS: BP 136/72
[2020-10-25 00:15] VITALS: BP 118/67
[2020-10-25 05:35] VITALS: BP 124/74
[2020-10-25 06:34] LABS: BASOPHILS 0.2 % (0-2); EOSINOPHILS 2.5 % (0-7); HEMATOCRIT 36.3 % (42.0-54.0); IMMATURE GRANULOCYTES 2.2 % (0-5); LYMPHOCYTE ABS# 2.05 10x3/uL (1.32-3.57); LYMPHOCYTES 22.5 % (15-50); MCH 29.5 pg (26.0-34.0); MCHC 33.1 g/dL (31.0-37.0); MCV 89.2 fL (80.0-100.0); MEAN PLATELET VOLUME 10.3 fL (7.4-10.4); MONOCYTES 5.7 % (2-11); NEUTROPHIL ABS# 6.08 10x3/uL (1.78-5.38); NEUTROPHILS 66.9 % (40-80); PLATELET COUNT 159 10x3/uL (130-400); RBC 4.07 10x6/uL (4.20-6.10); RDW 14.8 % (11.5-14.5); WBC 9.1 10x3/uL (4.8-10.8)
--- NOTE | 2020-10-25 07:20 | NUR ---
RECIEVE REPORT. RESTING IN BED WITH EYES CLOSED. GUARD AT BEDSIDE. LEGS SHACKLED TO BED. NO SIGNS OF DISTRESS. CONTINUE PLAN OF CARE AND SAFETY PRECAUTIONS.
[2020-10-25 07:39] LABS: ALBUMIN 2.4 g/dL (3.4-5.0); ANION GAP 16.3 mmol/L (8-16); BILIRUBIN - TOTAL 0.15 mg/dL (0.2-1.3); CALCIUM 8.7 mg/dL (8.5-10.1); CARBON DIOXIDE 21.1 mmol/L (21.0-32.0); CREATININE - SERUM 4.1 mg/dL (0.6-1.3); POTASSIUM - SERUM 4.4 mmol/L (3.5-5.1); PROTEIN - SERUM 6.6 g/dL (6.4-8.2); VANCOMYCIN - RANDOM 16.4 ug/mL (10.0-20.0)
[2020-10-25 08:12] VITALS: BP 117/69
[2020-10-25 16:08] LABS: AEROBE ID Final report (())
[2020-10-25 20:00] VITALS: BP 101/55
[2020-10-26 01:26] VITALS: BP 127/68
[2020-10-26 05:25] VITALS: BP 137/74
[2020-10-26 07:05] LABS: BASOPHILS 0.2 % (0-2); EOSINOPHILS 2.5 % (0-7); HEMATOCRIT 37.2 % (42.0-54.0); HEMOGLOBIN 12.3 g/dL (13.5-17.5); IMMATURE GRANULOCYTES 2.3 % (0-5); LYMPHOCYTE ABS# 1.77 10x3/uL (1.32-3.57); LYMPHOCYTES 21.2 % (15-50); MCH 29.6 pg (26.0-34.0); MCHC 33.1 g/dL (31.0-37.0); MCV 89.4 fL (80.0-100.0); MEAN PLATELET VOLUME 10.9 fL (7.4-10.4); MONOCYTES 8.1 % (2-11); NEUTROPHIL ABS# 5.49 10x3/uL (1.78-5.38); NEUTROPHILS 65.7 % (40-80); PLATELET COUNT 170 10x3/uL (130-400); RBC 4.16 10x6/uL (4.20-6.10); WBC 8.4 10x3/uL (4.8-10.8)
[2020-10-26 07:20] LABS: ALBUMIN 2.4 g/dL (3.4-5.0); ANION GAP 14.2 mmol/L (8-16); BILIRUBIN - TOTAL 0.13 mg/dL (0.2-1.3); CALCIUM 8.5 mg/dL (8.5-10.1); CARBON DIOXIDE 20.5 mmol/L (21.0-32.0); CREATININE - SERUM 3.8 mg/dL (0.6-1.3); POTASSIUM - SERUM 4.7 mmol/L (3.5-5.1); PROTEIN - SERUM 6.7 g/dL (6.4-8.2)
[2020-10-26 10:00] VITALS: BP 154/89
--- NOTE | 2020-10-26 12:07 | NUR ---
PATIENT TO COIL CONNECTOR.
--- NOTE | 2020-10-26 12:53 | NUR ---
REPORT CALLED FROM RESERVATIONS SALES SUPERVISOR. CLEAN DARBY.
--- NOTE | 2020-10-26 13:00 | NUR ---
BACK TO ROOM VIA BED.
[2020-10-26 14:00] VITALS: BP 143/80
[2020-10-26 21:00] VITALS: BP 139/76
[2020-10-27] VITALS: BP 158/89
[2020-10-27 04:00] VITALS: BP 147/77
[2020-10-27 06:16] LABS: BASOPHILS 0.8 % (0-2); HEMATOCRIT 35.3 % (42.0-54.0); LYMPHOCYTES 15.8 % (15-50); MCH 30.6 pg (26.0-34.0); MCHC 33.9 g/dL (31.0-37.0); MCV 90.1 fL (80.0-100.0); MEAN PLATELET VOLUME 8.9 fL (7.4-10.4); MONOCYTES 6.2 % (2-11); NEUTROPHILS 75.2 % (40-80); PLATELET COUNT 183 10x3/uL (130-400); RBC 3.92 10x6/uL (4.20-6.10); RDW 16.2 % (11.5-14.5); WBC 9.3 10x3/uL (4.8-10.8)
[2020-10-27 06:29] LABS: ALBUMIN 2.6 g/dL (3.4-5.0); ANION GAP 15.6 mmol/L (8-16); BILIRUBIN - TOTAL 0.19 mg/dL (0.2-1.3); CARBON DIOXIDE 21.9 mmol/L (21.0-32.0); CREATININE - SERUM 3.8 mg/dL (0.6-1.3); POTASSIUM - SERUM 4.5 mmol/L (3.5-5.1); PROTEIN - SERUM 6.8 g/dL (6.4-8.2)
--- NOTE | 2020-10-27 07:50 | NUR ---
Lying in bed, awake/alert/oriented, T/R self ad kathryn, cont of B/B with BRPs per self ad kathryn, denies pain/other discomfort at this time, call light/phone/water within reach, no s/s of acute distress observed.
[2020-10-27 07:59] VITALS: BP 156/80
[2020-10-27 11:22] VITALS: BP 153/81
--- NOTE | 2020-10-27 12:41 | NUR ---
Nutrition Follow-up: ESRD on HD Diet: Renal ADA PO intake: 75-100% x last 8 meals Last BM: 10/25/20 Wt: 201# (10/16/20) Meds noted: novolin 70/30, probiotics, lasix, SSI Labs noted: BUN 74(H), Cr 3.8(H), GFR 21(L), Glu 160(H) Recommend: -Continue current diet. Will continue to honor food preferences within diet restrictions. -RD will re-assess 10/30/20.
--- NOTE | 2020-10-27 14:07 | TEE ---
PATIENT:MARCOS BARRERA MEDICAL RECORD: [id number] LOCATION:D. D.214 AGE OF PATIENT: 60 ADMISSION DATE: 10/15/20 SEX: M REFERRING PHYSICIAN: INTERPRETING PHYSICIAN: GILBERT BUTLER MD TRANSESOPHAGEAL ECHOCARDIOGRAM Date: 10/26/20 DARBY CHARGE Y INDICATIONS: R/O VEG PREMEDICATIONS: PATIENT'S RESPONSE PROCEDURE DOPPLER MEASUREMENTS: LVIT LA PA 102 RA LVOT 81 RVOT 69 Asc. Ao 115 AV Gradient Peak 5.3 AV Mean 2.9 AV Area 1.5 MV Gradient Peak 4.4 MV Mean 1.5 MV Area INTERPRETATION: Doppler: 2-D: COLOR FLOW DOPPLER NORMAL SALINE STUDY: MISCELLANOUS: DIAGNOSIS: PLAN: Salon Coordinator:3 Dr. Cabrera Rafter Cutting Machine Operator: Deborah ROQUE COMMENTS: DATE OF SERVICE: 10/26/2020 PROCEDURE: After moderate sedation with Versed and fentanyl, transesophageal Omniplane probe was passed in the distal esophagus and proximal stomach without difficulty. FINDINGS: As follows; LVH is present. LV internal dimension is normal. Wall motion is normal. EF is greater than or equal to 55%. Aortic valve is tricuspid with good valve excursion. No evidence of vegetation. Left atrium TRANSESOPHAGEAL ECHOCARDIOGRAM REPORT [id number] MARCOS BARRERA appears normal. Mitral valve appears normal. No prolapse. No evidence of vegetation. Mild MR. Right-sided chambers appear grossly normal. Mild TR. No evidence of vegetation. At the end of the procedure, transesophageal Omniplane probe was turned posteriorly and this showed minimal atherosclerotic debris in the descending aorta. IMPRESSION: No evidence of vegetation on all 4 cardiac valves. Left ventricular function is normal. TRANSINT:[id number] Voice Confirmation ID: [id number] DOCUMENT ID: [id number] CC: [id number] DICTATION DATE: 10/26/20 1249 HAND OR MACHINE PASTER: 10/26/20 1413 ADM IN [facility] [id number] [place] [address]
[2020-10-27 16:03] VITALS: BP 155/86
--- NOTE | 2020-10-27 19:30 | NUR ---
PT IN BED, AAO X 4, RESP EVEN AND UNLABORED, NO DISTRESS NOTED, CL IN REACH, SR UP X 2.
[2020-10-27 21:00] VITALS: BP 163/83
[2020-10-28] VITALS: BP 156/85
--- NOTE | 2020-10-28 00:16 | NUR ---
I have reviewed this patient and I concur with the Shift Assessment completed by the Licensed Practical Nurse today this shift.
[2020-10-28 04:00] VITALS: BP 148/83
[2020-10-28 06:45] LABS: ALBUMIN 2.5 g/dL (3.4-5.0); ANION GAP 14.1 mmol/L (8-16); BILIRUBIN - TOTAL 0.23 mg/dL (0.2-1.3); CALCIUM 8.5 mg/dL (8.5-10.1); CARBON DIOXIDE 22.4 mmol/L (21.0-32.0); CREATININE - SERUM 3.5 mg/dL (0.6-1.3); POTASSIUM - SERUM 4.5 mmol/L (3.5-5.1); PROTEIN - SERUM 6.8 g/dL (6.4-8.2)
--- NOTE | 2020-10-28 07:30 | NUR ---
Lying in bed with covers up to his neck and covers pulled up, awake/alert/oriented, T/R self ad kathryn, cont of B/B with BRPs per self ad kathryn, denies pain/other discomfort at this time, call light/phone/water within reach, no s/s of acute distress observed.
[2020-10-28 07:38] VITALS: BP 137/73
[2020-10-28 12:13] VITALS: BP 133/74
--- NOTE | 2020-10-28 12:33 | MORECARE ---
CASE MANAGEMENT DISCHARGE SUMMARY PATIENT: MARCOS BARRERA UNIT: [id number] ADM DATE: 10/15/20 AGE: 60 : 62 SEX: M ROOM/BED: D.2140 AUTHOR: CHAU PAUL PHYSICIAN: REFERRING PHYSICIAN: MARY ALEJANDRE MD DATE OF SERVICE: 10/28/20 Case Management Discharge Planning Summary COMMENTS ENTERED DATE: 10/28/20 12:29 CT COMMENT TYPE: Discharge Planning REVIEWER: Marlen Sykes CLINICAL DOCUMENTATION FAXED TO [facility] FOR UPDATE. ENTERED DATE: 10/21/20 23:18 CT COMMENT TYPE: Discharge Planning REVIEWER: Anusha Salgado PATIENT IS AN INMATE AT [facility] DEPARTMENT OF CORRECTIONS AND WILL RETURN THERE UPON DISCHARGE. GUARD AT DOOR OF ROOM DCP REVIEW SUMMARY ANTICIPATED D/C DATE: EXPECTED LOS : CASE STATUS: DCP Initiated INITIAL REVIEW: 10/15/2020 INITIAL REVIEWER: Anusha Salgado FINAL DISCHARGE DISPOSITION: : FINAL REVIEWER: FINAL REVIEW DATE: DCP Focus Questions & Answers DCP Screen QUESTION: ANSWER High Risk Factors: : Hosp related to CHF, COPD, DM, End Stage Ds, CVA, CA DCP Evaluation QUESTION: ANSWER Patient gives permission to discuss discharge plans with: (name, relationship and number) : [facility] INM[facility] Patient's ability to cope with chronic illness : d. No chronic illness Physical Status: : Independent with ADL's Living Arrangements: : Other Living arrangements comments: : [facility] Baseline cognitive status: : *Oriented to person, place, situation, time and present Pharmacy name(s): : [facility] Does Patient have transportation to get home and to follow-up medical appointments when discharged from the hospital? : Yes Would patient like to participate in any Care Coordination programs (if applicable): : Not applicable Does the patient have electricity at home? : Yes Does the patient have running water in their house? : Yes Mental health screen: : No mental health history DCP Re-evaluation QUESTION: ANSWER Would patient like to participate in any Care Coordination programs (if applicable): : Not applicable PATIENT: MARCOS BARRERA ENCOUNTER: [id number] MEDICAL RECORD#: [id number] ADMISSION DATE: 10/15/2020 DISCHARGE DATE: ATTENDING MD: MARY ARDON : AGE: 60 MARITAL STATUS: M DC PLAN ID: [id number] FACILITY: [facility] PRINTED ON: 10/28/20 12:33 CT All edits/amendments must be made on the electronic document DICTATION DATE: 10/28/20 1233 PCU RN: YOSHI 10/28/20 1233 RPT#: [id number] DC DATE: STATUS: ADM IN [facility] [address] [place] [address] END OF REPORT
[2020-10-28] MEDS ORDERED: ADOXA100 MG PO (13:11)
--- NOTE | 2020-10-28 13:58 | NUR ---
Provided written/verbal discharge instructions/education to which pt voiced understanding, discontinued IV access at this time.
--- NOTE | 2020-10-28 14:03 | MORECARE ---
CASE MANAGEMENT DISCHARGE SUMMARY PATIENT: MARCOS BARRERA UNIT: [id number] ADM DATE: 10/15/20 AGE: 60 : 62 SEX: M ROOM/BED: D.2140 AUTHOR: BEVERLY,DOC PHYSICIAN: REFERRING PHYSICIAN: MARY ALEJANDRE MD DATE OF SERVICE: 10/28/20 Case Management Discharge Planning Summary COMMENTS ENTERED DATE: 10/28/20 13:55 CT COMMENT TYPE: Discharge Planning REVIEWER: Jayleen Rankin DC med list and DCS sent to [facility]. I called Vilma with [facility] and informed of discharge on her voice mail. ENTERED DATE: 10/28/20 12:29 CT COMMENT TYPE: Discharge Planning REVIEWER: Marlen Sykes CLINICAL DOCUMENTATION FAXED TO [facility] FOR UPDATE. ENTERED DATE: 10/21/20 23:18 CT COMMENT TYPE: Discharge Planning REVIEWER: Anusha Salgado PATIENT IS AN INMATE AT [facility] AND WILL RETURN THERE UPON DISCHARGE. GUARD AT DOOR OF ROOM DCP REVIEW SUMMARY ANTICIPATED D/C DATE: EXPECTED LOS : CASE STATUS: DCP Initiated INITIAL REVIEW: 10/15/2020 INITIAL REVIEWER: Anusha Salgado FINAL DISCHARGE DISPOSITION: : FINAL REVIEWER: FINAL REVIEW DATE: DCP Focus Questions & Answers DCP Screen QUESTION: ANSWER High Risk Factors: : Hosp related to CHF, COPD, DM, End Stage Ds, CVA, CA DCP Evaluation QUESTION: ANSWER Patient gives permission to discuss discharge plans with: (name, relationship and number) : [facility] IN[facility] Patient's ability to cope with chronic illness : d. No chronic illness Physical Status: : Independent with ADL's Living Arrangements: : Other Living arrangements comments: : [facility] Baseline cognitive status: : *Oriented to person, place, situation, time and present Pharmacy name(s): : [facility] Does Patient have transportation to get home and to follow-up medical appointments when discharged from the hospital? : Yes Would patient like to participate in any Care Coordination programs (if applicable): : Not applicable Does the patient have electricity at home? : Yes Does the patient have running water in their house? : Yes Mental health screen: : No mental health history DCP Re-evaluation QUESTION: ANSWER Would patient like to participate in any Care Coordination programs (if applicable): : Not applicable PATIENT: MARCOS BARRERA ENCOUNTER: [id number] MEDICAL RECORD#: [id number] ADMISSION DATE: 10/15/2020 DISCHARGE DATE: ATTENDING MD: MARY ARDON : AGE: 60 MARITAL STATUS: M DC PLAN ID: [id number] FACILITY: [facility] PRINTED ON: 10/28/20 14:03 CT All edits/amendments must be made on the electronic document DICTATION DATE: 10/28/201402 MEAT SMOKER: YOSHI 10/28/201402 RPT#: [id number] DC DATE: STATUS: ADM IN [facility] [address] [place] [address] END OF REPORT
--- NOTE | 2020-10-28 14:06 | NUR ---
Called report to LUIS Delaney with [facility].
--- NOTE | 2020-10-28 15:29 | NUR ---
Discontinued IV access at this time.
--- NOTE | 2020-10-28 16:00 | NUR ---
Discontinued IV access at this time.
--- NOTE | 2020-10-28 16:00 | NUR ---
Discharged home to self care in stable condition via w/c accompanied by hospital staff and guard chief, no s/s of acute distress observed.
--- NOTE | 2020-10-29 19:25 | MORECARE ---
CASE MANAGEMENT DISCHARGE SUMMARY PATIENT: MARCOS BARRERA UNIT: [id number] ADM DATE: 10/15/20 AGE: 60 : 62 SEX: M ROOM/BED: D.2140 AUTHOR: BEVERLY,DOC PHYSICIAN: REFERRING PHYSICIAN: MARY ALEJANDRE MD DATE OF SERVICE: 10/29/20 Case Management Discharge Planning Summary COMMENTS ENTERED DATE: 10/28/20 13:55 CT COMMENT TYPE: Discharge Planning REVIEWER: Jayleen Rankin DC med list and DCS sent to [facility]. I called Vilma with [facility] and informed of discharge on her voice mail. ENTERED DATE: 10/28/20 12:29 CT COMMENT TYPE: Discharge Planning REVIEWER: Marlen Sykes CLINICAL DOCUMENTATION FAXED TO [facility] FOR UPDATE. ENTERED DATE: 10/21/20 23:18 CT COMMENT TYPE: Discharge Planning REVIEWER: Anusha Salgado PATIENT IS AN INMATE AT [facility]PART[facility] OF CORRECTIONS AND WILL RETURN THERE UPON DISCHARGE. GUARD AT DOOR OF ROOM DCP REVIEW SUMMARY ANTICIPATED D/C DATE: EXPECTED LOS : CASE STATUS: DCP Initiated INITIAL REVIEW: 10/15/2020 INITIAL REVIEWER: Anusha Salgado FINAL DISCHARGE DISPOSITION: : FINAL REVIEWER: FINAL REVIEW DATE: DCP Focus Questions & Answers DCP Screen QUESTION: ANSWER High Risk Factors: : Hosp related to CHF, COPD, DM, End Stage Ds, CVA, CA DCP Evaluation QUESTION: ANSWER Patient gives permission to discuss discharge plans with: (name, relationship and number) : [facility] IN[facility] Patient's ability to cope with chronic illness : d. No chronic illness Physical Status: : Independent with ADL's Living Arrangements: : Other Living arrangements comments: : [facility] Baseline cognitive status: : *Oriented to person, place, situation, time and present Pharmacy name(s): : [facility] Does Patient have transportation to get home and to follow-up medical appointments when discharged from the hospital? : Yes Would patient like to participate in any Care Coordination programs (if applicable): : Not applicable Does the patient have electricity at home? : Yes Does the patient have running water in their house? : Yes Mental health screen: : No mental health history DCP Re-evaluation QUESTION: ANSWER Would patient like to participate in any Care Coordination programs (if applicable): : Not applicable PATIENT: MARCOS BARRERA ENCOUNTER: [id number] MEDICAL RECORD#: [id number] ADMISSION DATE: 10/15/2020 DISCHARGE DATE: 10/28/2020 ATTENDING MD: MARY ARDON : AGE: 60 MARITAL STATUS: M DC PLAN ID: [id number] FACILITY: [facility] PRINTED ON: 10/29/20 19:25 CT All edits/amendments must be made on the electronic document DICTATION DATE: 10/29/201924 MELT HOUSE SUPERVISOR: YOSHI 10/29/201924 RPT#: [id number] DC DATE:10/28/20 STATUS: DIS IN [facility] [address] [place] [address] END OF REPORT
== END 2020-10-28 16:00 | disposition home or self-care (01) | DRG 314 ==
LOC: D.ER 12:54 → D.M2 14:55
PROVIDERS: Emergency Medicine; Internal Medicine; Internal Medicine Nephrology; ADMIT Emergency Medicine; ATTEND Emergency Medicine
PROC: 5A1D70Z Performance of Urinary Filtration, Intermittent, Less than 6 Hours Per Day (ICD-10-PCS; principal; 2020-10-16)
PROC: 0WP8XYZ Removal of Other Device from Chest Wall, External Approach (ICD-10-PCS; 2020-10-20)
DX: T82.7XXA Infection and inflammatory reaction due to other cardiac and vascular devices, implants and grafts, initial encounter (principal); N18.6 End stage renal disease; I13.2 Hypertensive heart and chronic kidney disease with heart failure and with stage 5 chronic kidney disease, or end stage renal disease; R78.81 Bacteremia; J10.2 Influenza due to other identified influenza virus with gastrointestinal manifestations; K52.9 Noninfective gastroenteritis and colitis, unspecified; Z86.73 Personal history of transient ischemic attack (TIA), and cerebral infarction without residual deficits; Z95.0 Presence of cardiac pacemaker; E11.22 Type 2 diabetes mellitus with diabetic chronic kidney disease; I50.9 Heart failure, unspecified; Z99.2 Dependence on renal dialysis; Z87.891 Personal history of nicotine dependence; B19.20 Unspecified viral hepatitis C without hepatic coma; B96.89 Other specified bacterial agents as the cause of diseases classified elsewhere; Y83.9 Surgical procedure, unspecified as the cause of abnormal reaction of the patient, or of later complication, without mention of misadventure at the time of the procedure